=== PATIENT | male | born 1955 | race Hispanic/Latino ===

== ENCOUNTER 2020-09-22 11:08 | Inpatient (IN) | payer MEDICAID, OTHER, SELFPAY ==
[~2020-09-22] VITALS: Ht 162.6 cm; Wt 72.7 kg
[2020-09-22] MEDS ORDERED: NITROGLYCERIN 1GM/1 INCH PACKET TD ONE (11:29)
[2020-09-22 11:34] LABS: BASOPHILS % (AUTO) 0.5 % (0.0-5.0); EOSINOPHILS % (AUTO) 0.9 % (0.0-8.0); HEMATOCRIT 39.5 % (42-54); LYMPHOCYTES % (AUTO) 36.4 % (21.0-51.0); MEAN CORPUSCULAR HEMOGLOBIN 28.2 pg (27.0-33.0); MEAN CORPUSCULAR HGB CONC 33.4 g/dL (32.0-36.0); MEAN CORPUSCULAR VOLUME 84.4 fL (79-99); MONOCYTES % (AUTO) 11.2 % (3.0-13.0); NEUTROPHILS % (AUTO) 50.6 % (40.0-77.0); PLATELET COUNT (AUTO) 237 K/uL (130-400); RED BLOOD CELL COUNT(AUTO) 4.68 MIL/uL (4.50-6.20); RED CELL DISTRIBUTION WIDTH 13.3 % (11.0-15.5); WHITE BLOOD COUNT (AUTO) 7.4 K/uL (4.8-10.8)
[2020-09-22 11:43] LABS: CREATININE 0.8 mg/dL (0.5-1.5); POTASSIUM 3.9 mmol/L (3.5-5.1)
[2020-09-22 11:47] LABS: BILIRUBIN,TOTAL 0.4 mg/dL (0.2-1.0); TOTAL PROTEIN, SERUM 7.6 g/dL (6.0-8.3)
[2020-09-22 12:21] LABS: INR 0.99 (0.85-1.15); PROTHROMBIN TIME 10.6 SEC (9.6-11.6)
[2020-09-22 12:23] LABS: PARTIAL THROMBOPLASTIN TIME 27.9 SEC (26.3-35.5)
[2020-09-22] MEDS ORDERED: ASPIRIN 81MG TAB.CHEW PO SCH (13:30)
[2020-09-22] MEDS ORDERED: GLUCAGON 1MG KIT 1 MG ML IM PRN ×2 (13:30→17:15)
[2020-09-22] MEDS ORDERED: ENOXAPARIN SODIUM 40 MG/0.4 ML SYRINGE SQ SCH (13:30)
[2020-09-22] MEDS ORDERED: DEXTROSE 50%-WATER 50 ML DISP.SYRIN IV PRN ×2 (13:30→17:15)
[2020-09-22] MEDS ORDERED: METOPROLOL TARTRATE 25 MG TAB PO SCH (13:30)
[2020-09-22 15:31] LABS: APPEARANCE,URINE Clear (CLEAR); BILIRUBIN,URINE Negative (NEGATIVE); COLOR,URINE Yellow (YELLOW); GLUCOSE, URINE (UA) >=1000 mg/dL (NEGATIVE); KETONES,URINE Negative (NEGATIVE); LEUKOCYTE ESTERASE ,URINE Negative (NEGATIVE); NITRATE,URINE Negative (NEGATIVE); OCCULT BLOOD,URINE Negative (NEGATIVE); PH,URINE 6.5 (5.0-8.0); PROTEIN,URINE POS 1+ mg/dL (NEGATIVE); UROBILINOGEN,URINE 0.2 mg/dL (0.2-1.0)
[2020-09-22 15:43] LABS: BACTERIA,URINE Rare /HPF (None Seen); RBC,URINE 0-1 /HPF (0-1); SQUAMOUS EPITHELIAL CELL,UR Rare /HPF (0-2); WBC,URINE 0-1 /HPF (0-1)
[2020-09-22] MEDS ORDERED: INSULIN HUMULIN R 100 UNIT/ML 3ML SQ SCH (16:30)
[2020-09-22] MEDS ORDERED: FUROSEMIDE 40 MG TABLET PO SCH (17:00)
[2020-09-22] MEDS ORDERED: ACETAMINOPHEN 325 MG TAB PO PRN (17:15)
[2020-09-22] MEDS ORDERED: GUAIFENESIN-DM 200/20 MG 10 ML PO PRN (17:15)
[2020-09-22] MEDS ORDERED: DiphenhydrAMINE HCL 50 MG/ML VIAL IV PRN (17:15)
[2020-09-22] MEDS ORDERED: ONDANSETRON HCL 4 MG/2 ML VIAL IV PRN (17:15)
[2020-09-22] MEDS ORDERED: MAG HYDROX/AL HYDROX/SIMETH ES 30 ML SUSP UDCUP PO PRN (17:15)
[2020-09-22] MEDS ORDERED: POTASSIUM CHLORIDE 10% ELIXIR 20 MEQ/15 ML UDCUP PO PRN (17:15)
[2020-09-22] MEDS ORDERED: POTASSIUM CHLORIDE 20 MEQ ERTAB PO PRN (17:15)
[2020-09-22] MEDS ORDERED: NITROGLYCERIN 0.4 MG SL TAB SL PRN (17:15)
[2020-09-22] MEDS ORDERED: POTASSIUM CHLORIDE 20MEQ/100ML 100 ML IV PRN ×2 (17:15)
[2020-09-22] MEDS ORDERED: LACTULOSE 20 GM/30 ML UDCUP PO PRN (17:15)
[2020-09-22] MEDS ORDERED: DIPHENHYDRAMINE HCL 25 MG CAPSULE PO PRN (17:15)
[2020-09-22] MEDS: FAMOTIDINE 20MG TAB 20 MG TAB PO SCH (21:00)
[2020-09-22] MEDS: INSULIN HUMULIN R 100 UNIT/ML 3ML SQ SCH (21:00)
[2020-09-22] MEDS ORDERED: FERR325T22 PO (22:18)
[2020-09-22] MEDS ORDERED: ATOR40TA71 PO (22:18)
[2020-09-22] MEDS ORDERED: CLOP75TA32 PO (22:18)
[2020-09-22] MEDS ORDERED: LISI-617 PO (22:18)
[2020-09-22] MEDS ORDERED: FURO80TA87 PO (22:18)
[2020-09-22] MEDS ORDERED: SPIR100T5 PO (22:18)
[2020-09-22] MEDS ORDERED: AEC81 PO (22:18)
[2020-09-22 22:39] VITALS: BP 141/80
[2020-09-23 00:27] VITALS: BP 143/103
[2020-09-23 04:19] VITALS: BP 145/50
[2020-09-23] MEDS: INSULIN HUMULIN R 100 UNIT/ML 3ML SQ SCH ×4 (04:56→20:49)
[2020-09-23 08:00] VITALS: BP 131/53
[2020-09-23] MEDS ORDERED: FUROSEMIDE 10 MG/ML 4ML VIAL IV SCH (08:00)
[2020-09-23] MEDS ORDERED: SPIRONOLACTONE 25 MG TAB PO SCH (09:00)
[2020-09-23] MEDS: ASPIRIN 81MG TAB.CHEW PO SCH (09:41)
[2020-09-23] MEDS: FAMOTIDINE 20MG TAB 20 MG TAB PO SCH ×2 (09:41→19:54)
[2020-09-23] MEDS: ATORVASTATIN CALCIUM 40 MG TABLET PO SCH (09:41)
[2020-09-23] MEDS: LISINOPRIL 5 MG TABLET PO SCH (09:42)
[2020-09-23] MEDS: METOPROLOL SUCCINATE 50 MG TAB.SR.24H PO SCH (09:42)
[2020-09-23] MEDS: ENOXAPARIN SODIUM 40 MG/0.4 ML SYRINGE SQ SCH (09:43)
[2020-09-23] MEDS ORDERED: REGADENOSON 0.4 MG/5 ML PF SYG IVP SCH (11:00)
[2020-09-23 16:44] VITALS: BP 155/63
[2020-09-23 19:40] VITALS: BP 113/48
[2020-09-23 23:29] VITALS: BP 138/60
[2020-09-24 03:35] VITALS: BP 124/68
[2020-09-24] MEDS: INSULIN HUMULIN R 100 UNIT/ML 3ML SQ SCH ×4 (05:08→21:00)
[2020-09-24 06:05] LABS: BASOPHILS % (AUTO) 0.6 % (0.0-5.0); EOSINOPHILS % (AUTO) 0.9 % (0.0-8.0); HEMATOCRIT 36.4 % (42-54); LYMPHOCYTES % (AUTO) 28.1 % (21.0-51.0); MEAN CORPUSCULAR HEMOGLOBIN 28.7 pg (27.0-33.0); MEAN CORPUSCULAR HGB CONC 33.8 g/dL (32.0-36.0); MEAN CORPUSCULAR VOLUME 84.8 fL (79-99); MONOCYTES % (AUTO) 15.3 % (3.0-13.0); NEUTROPHILS % (AUTO) 54.7 % (40.0-77.0); PLATELET COUNT (AUTO) 218 K/uL (130-400); RED BLOOD CELL COUNT(AUTO) 4.29 MIL/uL (4.50-6.20); RED CELL DISTRIBUTION WIDTH 13.7 % (11.0-15.5)
[2020-09-24 06:29] LABS: MAGNESIUM 1.8 mg/dL (1.80-2.40); POTASSIUM 5.1 mmol/L (3.5-5.1)
[2020-09-24 06:37] LABS: B-TYPE NATRIURETIC PEPTIDE 290 pg/mL (0-100)
[2020-09-24 08:05] VITALS: BP 100/59
[2020-09-24] MEDS ORDERED: SODIUM POLYSTYRENE SULFONATE 15 GM/60 ML ML PO SCH (08:15)
[2020-09-24] MEDS ORDERED: ASPIRIN 81 MG EC TAB PO SCH (09:00)
[2020-09-24] MEDS ORDERED: FUROSEMIDE 10 MG/ML 2ML VIAL IV SCH (09:00)
[2020-09-24] MEDS ORDERED: ATORVASTATIN CALCIUM 40 MG TABLET PO SCH (09:00)
[2020-09-24] MEDS ORDERED: LISINOPRIL 5 MG TABLET PO SCH (09:00)
[2020-09-24] MEDS: FERROUS SULFATE 325 MG TABLET.DR PO SCH (09:40)
[2020-09-24] MEDS: ATORVASTATIN CALCIUM 40 MG TABLET PO SCH (09:41)
[2020-09-24] MEDS: METOPROLOL SUCCINATE 50 MG TAB.SR.24H PO SCH (09:41)
[2020-09-24] MEDS: CLOPIDOGREL BISULFATE 75 MG TAB PO SCH (09:41)
[2020-09-24] MEDS: FAMOTIDINE 20MG TAB 20 MG TAB PO SCH ×2 (09:41→21:18)
[2020-09-24] MEDS: LISINOPRIL 5 MG TABLET PO SCH (09:41)
[2020-09-24] MEDS: ASPIRIN 81MG TAB.CHEW PO SCH (09:42)
[2020-09-24] MEDS: ENOXAPARIN SODIUM 40 MG/0.4 ML SYRINGE SQ SCH (09:43)
[2020-09-24 11:43] VITALS: BP 143/79
[2020-09-24] MEDS ORDERED: SPIRONOLACTONE 100 MG PO SCH (12:00)
[2020-09-24 16:00] VITALS: BP 118/56
[2020-09-24 18:50] VITALS: BP 128/53
[2020-09-25] VITALS (16 sets, daily range): BP systolic 112–164; BP diastolic 41–120
[2020-09-25] MEDS: INSULIN HUMULIN R 100 UNIT/ML 3ML SQ SCH ×4 (05:34→20:59)
[2020-09-25 05:54] LABS: CREATININE 0.9 mg/dL (0.5-1.5); POTASSIUM 4.1 mmol/L (3.5-5.1)
[2020-09-25] MEDS: CLOPIDOGREL BISULFATE 75 MG TAB PO SCH (08:31)
[2020-09-25] MEDS: ENOXAPARIN SODIUM 40 MG/0.4 ML SYRINGE SQ SCH (08:31)
[2020-09-25] MEDS: LISINOPRIL 5 MG TABLET PO SCH (08:31)
[2020-09-25] MEDS: METOPROLOL SUCCINATE 50 MG TAB.SR.24H PO SCH (08:31)
[2020-09-25] MEDS: ATORVASTATIN CALCIUM 40 MG TABLET PO SCH ×2 (08:31→20:51)
[2020-09-25] MEDS: FAMOTIDINE 20MG TAB 20 MG TAB PO SCH ×2 (08:31→20:50)
[2020-09-25] MEDS: ASPIRIN 81MG TAB.CHEW PO SCH (08:31)
[2020-09-25] MEDS: FERROUS SULFATE 325 MG TABLET.DR PO SCH (08:31)
[2020-09-25] MEDS ORDERED: NITROGLYCERIN 2 MG/VIAL VIAL IV ONE (16:20)
[2020-09-25] MEDS ORDERED: MIDAZOLAM HCL 1 MG/ML 2ML VIAL ONE (16:20)
[2020-09-25] MEDS ORDERED: IOHEXOL 350 MG/ML 100ML INFUS..BTL IV ONE (16:20)
[2020-09-25] MEDS ORDERED: SODIUM BICARB 50MEQ 50ML VIAL 50 ML ONE (16:20)
[2020-09-25] MEDS ORDERED: BIVALIRUDIN 250 MG/VIAL IV ONE (16:20)
[2020-09-25] MEDS ORDERED: FENTANYL CITRATE PF 50 MCG/1 ML 2ML VIAL ONE (16:20)
[2020-09-25] MEDS ORDERED: LIDOCAINE HCL 2% 20ML ONE (16:21)
[2020-09-25] MEDS ORDERED: HEPARIN SODIUM 1000UNIT/ML 10ML VIAL ONE (16:55)
[2020-09-25] MEDS ORDERED: LABETALOL HCL 5 MG/ML 20ML VIAL IV ONE (17:40)
[2020-09-25] MEDS ORDERED: NITROGLYCERIN 50 MG/D5% WATER 1 BOT ONE (17:40)
[2020-09-25] MEDS ORDERED: PHARMACY COMMUNICATION MISC SCH (18:30)
[2020-09-25 19:07] LABS: CREATININE 0.8 mg/dL (0.5-1.5); INR 1.04 (0.85-1.15); POTASSIUM 4.2 mmol/L (3.5-5.1); PROTHROMBIN TIME 11.1 SEC (9.6-11.6)
[2020-09-25 19:08] LABS: PARTIAL THROMBOPLASTIN TIME 69.8 SEC (26.3-35.5)
[2020-09-25 19:16] LABS: ALBUMIN 3.4 g/dL (3.5-5.0); BILIRUBIN,TOTAL 0.7 mg/dL (0.2-1.0); MAGNESIUM 2.5 mg/dL (1.80-2.40); TOTAL PROTEIN, SERUM 6.9 g/dL (6.0-8.3); TROPONIN I 0.1 ng/mL (0.00-0.06)
[2020-09-25] MEDS: DEXTROSE 5% SQ SCH (19:53)
[2020-09-25] MEDS: WATER SQ SCH (19:53)
[2020-09-25] MEDS: HEPARIN SODIUM SQ SCH (19:53)
[2020-09-25] MEDS: METOPROLOL TARTRATE 25 MG TAB PO SCH (20:51)
[2020-09-25] MEDS ORDERED: NITROGLYCERIN 50 MG/D5% WATER 1 BOT IV PRN (21:30)
[2020-09-25] MEDS ORDERED: CALCIUM GLUCONATE 1 GM in SODIUM CHLORIDE 0.9% 100 ML IV SCH (21:30)
[2020-09-25] MEDS ORDERED: SODIUM CHLORIDE 0.9% 1000ML 1,000 ML IV ONE (21:45)
[2020-09-25] MEDS: ACETAMINOPHEN 325 MG TAB PO PRN (21:52)
[2020-09-25] MEDS ORDERED: LABETALOL 20 MG/4 ML DISP.SYRIN IV ONE (22:30)
[2020-09-26] VITALS (26 sets, daily range): BP systolic 101–228; BP diastolic 35–95
[2020-09-26 03:29] LABS: HEMATOCRIT 32.4 % (42-54); MEAN CORPUSCULAR HEMOGLOBIN 28.3 pg (27.0-33.0); MEAN CORPUSCULAR HGB CONC 33.6 g/dL (32.0-36.0); MEAN CORPUSCULAR VOLUME 84.2 fL (79-99); RED BLOOD CELL COUNT(AUTO) 3.85 MIL/uL (4.50-6.20); RED CELL DISTRIBUTION WIDTH 13.4 % (11.0-15.5); WHITE BLOOD COUNT (AUTO) 7.6 K/uL (4.8-10.8)
[2020-09-26 03:42] LABS: INR 1.03 (0.85-1.15)
[2020-09-26 03:43] LABS: PARTIAL THROMBOPLASTIN TIME 29.3 SEC (26.3-35.5)
[2020-09-26 03:47] LABS: ALBUMIN 3.2 g/dL (3.5-5.0); BILIRUBIN,TOTAL 0.8 mg/dL (0.2-1.0); CREATININE 0.8 mg/dL (0.5-1.5); POTASSIUM 4.5 mmol/L (3.5-5.1); TOTAL PROTEIN, SERUM 6.3 g/dL (6.0-8.3)
[2020-09-26] MEDS: INSULIN HUMULIN R 100 UNIT/ML 3ML SQ SCH ×2 (05:49→11:00)
[2020-09-26] MEDS ORDERED: SODIUM CHLORIDE 0.9% 1000ML 1,000 ML IV ONE (07:50)
[2020-09-26] MEDS: METOPROLOL TARTRATE 25 MG TAB PO SCH (08:00)
[2020-09-26] MEDS: ACETAMINOPHEN 325 MG TAB PO PRN (08:01)
[2020-09-26] MEDS: ASPIRIN 81MG TAB.CHEW PO SCH (08:04)
[2020-09-26] MEDS: FAMOTIDINE 20MG TAB 20 MG TAB PO SCH (08:11)
[2020-09-26] MEDS: FERROUS SULFATE 325 MG TABLET.DR PO SCH (08:11)
[2020-09-26 08:47] LABS: MAGNESIUM 1.7 mg/dL (1.80-2.40); PHOSPHORUS 3.5 mg/dL (2.5-4.9)
[2020-09-26] MEDS ORDERED: MAGNESIUM 2GM PREMIX 50ML 50 ML IV SCH (09:00)
[2020-09-26] MEDS ORDERED: CEFAZOLIN SODIUM 1 GM VIAL ONE (09:59)
[2020-09-26] MEDS ORDERED: PAPAVERINE HCL 30 MG/ML 2ML VIAL ONE (09:59)
[2020-09-26] MEDS ORDERED: EPINEPHRINE 10 MG in SODIUM CHLORIDE 0.9% 240 ML IV PRN (10:00)
[2020-09-26] MEDS ORDERED: NOREPINEPHRINE BITARTRATE 8 MG in DEXTROSE 5%-WATER 250 ML IV PRN ×2 (10:00→18:45)
[2020-09-26] MEDS ORDERED: AMINOCAPROIC ACID 15,000 MG in SODIUM CHLORIDE 0.9% 500ML 420 ML IV PRN (10:00)
[2020-09-26] MEDS ORDERED: NITROGLYCERIN 50 MG/D5% WATER 1 BOT ONE (10:45)
[2020-09-26] MEDS: DEXTROSE 5%-WATER 1,000 ML IV PRN ×2 (11:30→12:15)
[2020-09-26] MEDS ORDERED: CEFAZOLIN SODIUM 1 GM VIAL IVP PRN (12:00)
[2020-09-26] MEDS ORDERED: EPINEPHRINE 1 MG/ML AMPULE ONE (13:22)
[2020-09-26] MEDS ORDERED: SODIUM BICARB 50MEQ 50ML VIAL 150 ML ONE (13:22)
[2020-09-26] MEDS ORDERED: PROPOFOL 10 MG/ML 20ML VIAL IV ONE (13:22)
[2020-09-26] MEDS ORDERED: LIDOCAINE PF 2% 5ML ABBOJECT ONE (13:22)
[2020-09-26] MEDS ORDERED: ESMOLOL HCL 10 MG/ML 10 ML VIAL ONE (13:22)
[2020-09-26] MEDS ORDERED: HEPARIN SODIUM 1000UNIT/ML 10ML VIAL ONE (13:22)
[2020-09-26] MEDS ORDERED: AMINOCAPROIC ACID 250 MG/ML 20 ML VIAL ONE (13:22)
[2020-09-26] MEDS ORDERED: NOREPINEPHRINE BITARTRATE 1 MG/1 ML ML IV ONE (13:22)
[2020-09-26] MEDS ORDERED: PROTAMINE SULFATE 10 MG/ML 25ML VIAL IV ONE (13:22)
[2020-09-26] MEDS ORDERED: ROCURONIUM 10MG/1ML SYR 10 MG/ML ML ONE (13:23)
[2020-09-26] MEDS ORDERED: FENTANYL CITRATE PF 50 MCG/1 ML 20ML VIAL IJ ONE (13:23)
[2020-09-26] MEDS ORDERED: MIDAZOLAM HCL 1 MG/ML 2ML VIAL ONE (13:23)
[2020-09-26] MEDS ORDERED: KETAMINE 50MG/ML SYRINGE 50 MG/ML DISP.SYRIN IV ONE (13:25)
[2020-09-26] MEDS ORDERED: EPHEDRINE SULFATE 50 MG/ML AMPULE ONE (15:42)
[2020-09-26 16:48] LABS: ABG BASE EXCESS -3.6 mmol/L (-2.0-3.0); ABG HCO3 19.2 mmol/L (21.0-28.0); ABG OXYGEN SATURATION 99.1 % (95.0-99.0); ABG PCO2 28 mmHg (35-48)
[2020-09-26] MEDS ORDERED: MORPHINE SULFATE 2 MG/ML 1ML SYG IV PRN ×2 (17:15→18:45)
[2020-09-26] MEDS ORDERED: NITROGLYCERIN 50 MG/D5% WATER 250 BOT IV SCH (17:15)
[2020-09-26] MEDS ORDERED: AMINOCAPROIC ACID 15,000 MG in SODIUM CHLORIDE 0.9% 250 ML IV SCH (17:15)
[2020-09-26] MEDS ORDERED: ACETAMINOPHEN 650 MG SUPPOSITORY RC PRN (17:15)
[2020-09-26] MEDS ORDERED: PROPOFOL 1000 MG/100 ML 100 ML IV PRN (17:15)
[2020-09-26] MEDS ORDERED: EPINEPHRINE 10 MG in DEXTROSE 5%-WATER 250 ML IV PRN (17:15)
[2020-09-26] MEDS ORDERED: NOREPINEPHRINE 4MG/NS 250ML 250 ML IV PRN (17:15)
[2020-09-26] MEDS ORDERED: SODIUM CHLORIDE 0.9% 1000ML 1,000 ML IV SCH (17:15)
[2020-09-26] MEDS ORDERED: INSULIN REGULAR, HUMAN 3ML 100 UNIT in SODIUM CHLORIDE 0.9% 99 ML IV SCH ×2 (17:15)
[2020-09-26] MEDS ORDERED: GLUCAGON 1MG KIT 1 MG ML IM PRN (17:15)
[2020-09-26] MEDS ORDERED: SODIUM CHLORIDE 0.9% 10 ML VIAL IVP PRN (17:15)
[2020-09-26] MEDS ORDERED: ONDANSETRON HCL 4 MG/2 ML VIAL IV PRN (17:15)
[2020-09-26] MEDS ORDERED: DEXTROSE 50%-WATER 50 ML DISP.SYRIN IV PRN (17:15)
[2020-09-26] MEDS ORDERED: POTASSIUM PHOS 15 mMOL+NS250ML 250 ML IV PRN (17:15)
[2020-09-26] MEDS ORDERED: ALBUMIN (HUMAN) 5% 250 ML IV PRN (17:15)
[2020-09-26] MEDS ORDERED: ACETAMINOPHEN 325 MG TAB PO PRN (17:15)
[2020-09-26 18:21] LABS: ABG BASE EXCESS -4.8 mmol/L (-2.0-3.0); ABG HCO3 19.3 mmol/L (21.0-28.0); ABG PCO2 32 mmHg (35-48)
[2020-09-26 18:56] LABS: ABG BASE EXCESS -1.2 mmol/L (-2.0-3.0); ABG HCO3 22.2 mmol/L (21.0-28.0); ABG PCO2 32 mmHg (35-48)
[2020-09-26 20:02] LABS: HEMATOCRIT 24.4 % (42-54); MEAN CORPUSCULAR HEMOGLOBIN 29.4 pg (27.0-33.0); MEAN CORPUSCULAR HGB CONC 34.8 g/dL (32.0-36.0); MEAN CORPUSCULAR VOLUME 84.4 fL (79-99); RED BLOOD CELL COUNT(AUTO) 2.89 MIL/uL (4.50-6.20); RED CELL DISTRIBUTION WIDTH 13.2 % (11.0-15.5); WHITE BLOOD COUNT (AUTO) 22.6 K/uL (4.8-10.8)
[2020-09-26 20:05] LABS: ABG BASE EXCESS -3.1 mmol/L (-2.0-3.0); ABG HCO3 19.4 mmol/L (21.0-28.0); ABG OXYGEN SATURATION 98.8 % (95.0-99.0); ABG PCO2 27 mmHg (35-48)
[2020-09-26 20:08] LABS: ABG OXYGEN SATURATION 65.5 % (95.0-99.0); BASE EXCESS,VENOUS BLOOD GAS -2.5 (-2.0-3.0); HCO3,VENOUS BLOOD GAS 21.2 (21.0-28.0); PCO2,VENOUS BLOOD GAS 34 (35-48); PH,VENOUS BLOOD GAS 7.414 (7.350-7.450)
[2020-09-26 20:14] LABS: INR 1.4 (0.85-1.15); MAGNESIUM 1.3 mg/dL (1.80-2.40); PHOSPHORUS 5.2 mg/dL (2.5-4.9); PROTHROMBIN TIME 14.7 SEC (9.6-11.6)
[2020-09-26 20:15] LABS: PARTIAL THROMBOPLASTIN TIME 23.4 SEC (26.3-35.5)
[2020-09-26] MEDS: POTASSIUM CHLORIDE 20MEQ/100ML 100 ML IV PRN ×2 (20:49→23:40)
[2020-09-26] MEDS: SODIUM BICARB 50MEQ 50ML VIAL IV PRN ×3 (20:50→21:52)
[2020-09-26] MEDS: ATORVASTATIN CALCIUM 40 MG TABLET PO SCH (21:00)
[2020-09-26] MEDS ORDERED: PROPOFOL 1000 MG/100 ML IV PRN (21:15)
[2020-09-26] MEDS ORDERED: PROPOFOL 1000 MG/100 ML 100 ML IV SCH (21:30)
[2020-09-26] MEDS: FAMOTIDINE/PF 20 MG/2 ML VIAL IV SCH (21:30)
[2020-09-26 21:32] LABS: ABG HCO3 21.1 mmol/L (21.0-28.0); ABG OXYGEN SATURATION 98.7 % (95.0-99.0); ABG PCO2 27 mmHg (35-48)
[2020-09-26] MEDS: SODIUM CHLORIDE 0.9% 500ML 500 ML IV SCH (21:43)
[2020-09-26] MEDS: CEFAZOLIN SODIUM 1 GM VIAL IV SCH (21:53)
[2020-09-26] MEDS: CALCIUM GLUCONATE 1 GM in SODIUM CHLORIDE 0.9% 50 ML IV PRN (21:57)
[2020-09-26 22:35] LABS: ABG BASE EXCESS -0.3 mmol/L (-2.0-3.0); ABG HCO3 20.9 mmol/L (21.0-28.0); ABG OXYGEN SATURATION 98.4 % (95.0-99.0); ABG PCO2 24 mmHg (35-48)
[2020-09-26 23:35] LABS: ABG BASE EXCESS -1.9 mmol/L (-2.0-3.0); ABG HCO3 20.3 mmol/L (21.0-28.0); ABG PCO2 27 mmHg (35-48)
[2020-09-27] VITALS (27 sets, daily range): BP systolic 116–255; BP diastolic 23–132
[2020-09-27 00:04] LABS: HEMATOCRIT 27.7 % (42-54); MEAN CORPUSCULAR HEMOGLOBIN 28.6 pg (27.0-33.0); MEAN CORPUSCULAR HGB CONC 33.9 g/dL (32.0-36.0); MEAN CORPUSCULAR VOLUME 84.2 fL (79-99); RED BLOOD CELL COUNT(AUTO) 3.29 MIL/uL (4.50-6.20); RED CELL DISTRIBUTION WIDTH 13.6 % (11.0-15.5); WHITE BLOOD COUNT (AUTO) 14.9 K/uL (4.8-10.8)
[2020-09-27 00:12] LABS: CREATININE 1.3 mg/dL (0.5-1.5); POTASSIUM 3.2 mmol/L (3.5-5.1)
[2020-09-27 00:15] LABS: MAGNESIUM 1.3 mg/dL (1.80-2.40); PHOSPHORUS 2.4 mg/dL (2.5-4.9)
[2020-09-27 00:23] LABS: INR 1.3 (0.85-1.15); PROTHROMBIN TIME 13.7 SEC (9.6-11.6)
[2020-09-27 00:24] LABS: PARTIAL THROMBOPLASTIN TIME 27.5 SEC (26.3-35.5)
[2020-09-27 00:29] LABS: ABG BASE EXCESS -1.8 mmol/L (-2.0-3.0); ABG PCO2 25 mmHg (35-48)
[2020-09-27] MEDS: MAGNESIUM 2GM PREMIX 50ML 50 ML IV PRN ×2 (00:43→02:05)
[2020-09-27] MEDS: SODIUM BICARB 50MEQ 50ML VIAL IV PRN ×2 (00:44→00:48)
[2020-09-27] MEDS: POTASSIUM CHLORIDE 20MEQ/100ML 100 ML IV PRN ×5 (00:44→19:42)
[2020-09-27 01:35] LABS: ABG BASE EXCESS 1.9 mmol/L (-2.0-3.0); ABG HCO3 23.1 mmol/L (21.0-28.0); ABG OXYGEN SATURATION 97.8 % (95.0-99.0); ABG PCO2 26 mmHg (35-48)
[2020-09-27] MEDS: CALCIUM GLUCONATE 1 GM in SODIUM CHLORIDE 0.9% 50 ML IV PRN ×4 (02:01→19:43)
[2020-09-27 02:37] LABS: ABG BASE EXCESS 3.1 mmol/L (-2.0-3.0); ABG HCO3 24.6 mmol/L (21.0-28.0); ABG OXYGEN SATURATION 97.6 % (95.0-99.0); ABG PCO2 27 mmHg (35-48)
[2020-09-27 03:43] LABS: ABG BASE EXCESS 5.4 mmol/L (-2.0-3.0); ABG HCO3 26.2 mmol/L (21.0-28.0); ABG PCO2 26 mmHg (35-48)
[2020-09-27 05:10] LABS: HEMATOCRIT 26.4 % (42-54); MEAN CORPUSCULAR HEMOGLOBIN 28.8 pg (27.0-33.0); MEAN CORPUSCULAR HGB CONC 34.8 g/dL (32.0-36.0); MEAN CORPUSCULAR VOLUME 82.5 fL (79-99); NUCLEATED RED BLOOD CELLS 0.2 % (0.0-0.19); RED BLOOD CELL COUNT(AUTO) 3.2 MIL/uL (4.50-6.20); RED CELL DISTRIBUTION WIDTH 13.6 % (11.0-15.5); WHITE BLOOD COUNT (AUTO) 12.2 K/uL (4.8-10.8)
[2020-09-27 05:21] LABS: ABG BASE EXCESS 5.9 mmol/L (-2.0-3.0); ABG HCO3 26.5 mmol/L (21.0-28.0); ABG OXYGEN SATURATION 97.6 % (95.0-99.0); ABG PCO2 26 mmHg (35-48)
[2020-09-27 05:23] LABS: INR 1.18 (0.85-1.15); PROTHROMBIN TIME 12.5 SEC (9.6-11.6)
[2020-09-27 05:25] LABS: PARTIAL THROMBOPLASTIN TIME 34.5 SEC (26.3-35.5)
[2020-09-27] MEDS: CEFAZOLIN SODIUM 1 GM VIAL IV SCH ×2 (05:41→13:50)
[2020-09-27 05:49] LABS: ALBUMIN 2.4 g/dL (3.5-5.0); CREATININE 1.2 mg/dL (0.5-1.5); MAGNESIUM 2.7 mg/dL (1.80-2.40); PHOSPHORUS 0.7 mg/dL (2.5-4.9); POTASSIUM 3.5 mmol/L (3.5-5.1)
[2020-09-27 06:12] LABS: BILIRUBIN,TOTAL 0.6 mg/dL (0.2-1.0); TOTAL PROTEIN, SERUM 4.6 g/dL (6.0-8.3)
[2020-09-27] MEDS: FAMOTIDINE/PF 20 MG/2 ML VIAL IV SCH ×2 (07:47→21:14)
[2020-09-27 08:07] LABS: ABG BASE EXCESS 3.9 mmol/L (-2.0-3.0); ABG HCO3 25.4 mmol/L (21.0-28.0); ABG OXYGEN SATURATION 97.1 % (95.0-99.0); ABG PCO2 28 mmHg (35-48)
[2020-09-27] MEDS ORDERED: RACEPINEPHRINE HCL 2.25% 0.5 ML NEB SOLN ONE (09:23)
[2020-09-27 10:53] LABS: ABG HCO3 29.3 mmol/L (21.0-28.0); ABG OXYGEN SATURATION 97.7 % (95.0-99.0); ABG PCO2 42 mmHg (35-48)
[2020-09-27] MEDS: ASPIRIN 81 MG EC TAB PO SCH (11:36)
[2020-09-27] MEDS: TRAMADOL HCL 50 MG TABLET PO PRN ×3 (11:36→22:50)
[2020-09-27] MEDS: DEXTROSE 5% SQ SCH (16:06)
[2020-09-27] MEDS: WATER SQ SCH (16:06)
[2020-09-27] MEDS: HEPARIN SODIUM SQ SCH (16:06)
[2020-09-27 19:35] LABS: ABG BASE EXCESS 3.4 mmol/L (-2.0-3.0); ABG HCO3 28.1 mmol/L (21.0-28.0); ABG OXYGEN SATURATION 98.1 % (95.0-99.0); ABG PCO2 43 mmHg (35-48)
[2020-09-27] MEDS: ATORVASTATIN CALCIUM 40 MG TABLET PO SCH (21:13)
[2020-09-27 21:36] LABS: HEMATOCRIT 21.8 % (42-54); MEAN CORPUSCULAR HGB CONC 33.5 g/dL (32.0-36.0); MEAN CORPUSCULAR VOLUME 86.5 fL (79-99); NUCLEATED RED BLOOD CELLS 0.3 % (0.0-0.19); RED BLOOD CELL COUNT(AUTO) 2.52 MIL/uL (4.50-6.20); RED CELL DISTRIBUTION WIDTH 14.7 % (11.0-15.5); WHITE BLOOD COUNT (AUTO) 16.1 K/uL (4.8-10.8)
[2020-09-27 22:00] LABS: ALBUMIN 2.5 g/dL (3.5-5.0); BILIRUBIN,TOTAL 0.5 mg/dL (0.2-1.0); CREATININE 0.9 mg/dL (0.5-1.5); POTASSIUM 4.8 mmol/L (3.5-5.1); TOTAL PROTEIN, SERUM 4.9 g/dL (6.0-8.3)
[2020-09-27 22:50] LABS: HEMATOCRIT 21.9 % (42-54); MEAN CORPUSCULAR HEMOGLOBIN 29.2 pg (27.0-33.0); MEAN CORPUSCULAR HGB CONC 33.3 g/dL (32.0-36.0); MEAN CORPUSCULAR VOLUME 87.6 fL (79-99); NUCLEATED RED BLOOD CELLS 0.2 % (0.0-0.19); RED BLOOD CELL COUNT(AUTO) 2.5 MIL/uL (4.50-6.20); WHITE BLOOD COUNT (AUTO) 17.5 K/uL (4.8-10.8)
[2020-09-27 23:05] LABS: INR 1.14 (0.85-1.15); PROTHROMBIN TIME 12.1 SEC (9.6-11.6)
[2020-09-27 23:06] LABS: PARTIAL THROMBOPLASTIN TIME 38.8 SEC (26.3-35.5)
[2020-09-28] VITALS (40 sets, daily range): BP systolic 114–199; BP diastolic 41–105
[2020-09-28] MEDS ORDERED: DEXTROSE 5%-WATER 1,000 ML IV ONE (02:25)
[2020-09-28 06:26] LABS: HEMATOCRIT 24.7 % (42-54); MEAN CORPUSCULAR HGB CONC 32.8 g/dL (32.0-36.0); MEAN CORPUSCULAR VOLUME 85.5 fL (79-99); NUCLEATED RED BLOOD CELLS 0.8 % (0.0-0.19); RED BLOOD CELL COUNT(AUTO) 2.89 MIL/uL (4.50-6.20); RED CELL DISTRIBUTION WIDTH 16.8 % (11.0-15.5); WHITE BLOOD COUNT (AUTO) 17.1 K/uL (4.8-10.8)
[2020-09-28 06:38] LABS: INR 1.07 (0.85-1.15); PROTHROMBIN TIME 11.4 SEC (9.6-11.6)
[2020-09-28 06:40] LABS: PARTIAL THROMBOPLASTIN TIME 29.6 SEC (26.3-35.5)
[2020-09-28 06:53] LABS: ALBUMIN 2.8 g/dL (3.5-5.0); BILIRUBIN,TOTAL 0.9 mg/dL (0.2-1.0); CREATININE 0.8 mg/dL (0.5-1.5); MAGNESIUM 2.1 mg/dL (1.80-2.40); POTASSIUM 4.2 mmol/L (3.5-5.1); TOTAL PROTEIN, SERUM 5.7 g/dL (6.0-8.3)
[2020-09-28 06:53] LABS: ABG BASE EXCESS 3.5 mmol/L (-2.0-3.0); ABG HCO3 28.4 mmol/L (21.0-28.0); ABG OXYGEN SATURATION 94.9 % (95.0-99.0); ABG PCO2 45 mmHg (35-48)
[2020-09-28] MEDS: CALCIUM GLUCONATE 1 GM in SODIUM CHLORIDE 0.9% 50 ML IV PRN (07:35)
[2020-09-28] MEDS ORDERED: CEFAZOLIN SODIUM 1 GM VIAL IVP PRN (08:30)
[2020-09-28] MEDS ORDERED: PROPOFOL 10 MG/ML 20ML VIAL IV ONE (08:35)
[2020-09-28] MEDS ORDERED: LIDOCAINE PF 2% 5ML ABBOJECT ONE (08:35)
[2020-09-28] MEDS ORDERED: DEXAMETHASONE SOD PHOSPHATE 10MG/ML 1ML VIAL ONE (08:35)
[2020-09-28] MEDS ORDERED: ONDANSETRON HCL 4 MG/2 ML VIAL ONE (08:35)
[2020-09-28] MEDS ORDERED: MIDAZOLAM HCL 1 MG/ML 2ML VIAL ONE (08:36)
[2020-09-28] MEDS ORDERED: FENTANYL CITRATE PF 50 MCG/1 ML 2ML VIAL ONE (08:36)
[2020-09-28] MEDS ORDERED: CEFAZOLIN SODIUM 1 GM VIAL ONE ×2 (08:45→08:46)
[2020-09-28 10:20] LABS: ABG HCO3 21.7 mmol/L (21.0-28.0); ABG OXYGEN SATURATION 98.6 % (95.0-99.0); ABG PCO2 37 mmHg (35-48)
[2020-09-28 10:26] LABS: MAGNESIUM 1.7 mg/dL (1.80-2.40); POTASSIUM 4.6 mmol/L (3.5-5.1)
[2020-09-28] MEDS: ASPIRIN 81 MG EC TAB PO SCH (10:53)
[2020-09-28] MEDS: FAMOTIDINE/PF 20 MG/2 ML VIAL IV SCH ×2 (10:53→21:09)
[2020-09-28] MEDS: TRAMADOL HCL 50 MG TABLET PO PRN ×2 (12:45→21:10)
[2020-09-28] MEDS: CARVEDILOL 3.125 MG TABLET PO SCH ×2 (13:27→21:09)
[2020-09-28] MEDS ORDERED: CARVEDILOL 3.125 MG TABLET PO SCH (17:30)
[2020-09-28] MEDS: SODIUM CHLORIDE 0.9% 500ML 500 ML IV SCH (18:23)
[2020-09-28 20:48] LABS: HEMATOCRIT 24.9 % (42-54); MEAN CORPUSCULAR HEMOGLOBIN 27.9 pg (27.0-33.0); MEAN CORPUSCULAR HGB CONC 32.1 g/dL (32.0-36.0); MEAN CORPUSCULAR VOLUME 86.8 fL (79-99); NUCLEATED RED BLOOD CELLS 0.9 % (0.0-0.19); PLATELET COUNT (AUTO) 108 K/uL (130-400); RED BLOOD CELL COUNT(AUTO) 2.87 MIL/uL (4.50-6.20); RED CELL DISTRIBUTION WIDTH 17.2 % (11.0-15.5); WHITE BLOOD COUNT (AUTO) 14.7 K/uL (4.8-10.8)
[2020-09-28] MEDS ORDERED: CARVEDILOL 6.25 MG TABLET PO SCH (21:00)
[2020-09-28 21:07] LABS: ALBUMIN 2.5 g/dL (3.5-5.0); BILIRUBIN,TOTAL 0.7 mg/dL (0.2-1.0); CREATININE 0.9 mg/dL (0.5-1.5); TOTAL PROTEIN, SERUM 5.5 g/dL (6.0-8.3)
[2020-09-28] MEDS: ATORVASTATIN CALCIUM 40 MG TABLET PO SCH (21:09)
[2020-09-28 21:35] LABS: PLATELET MORPHOLOGY LARGE PLTS PRESENT
[2020-09-28 22:17] LABS: ABG BASE EXCESS 1.3 mmol/L (-2.0-3.0); ABG HCO3 25.8 mmol/L (21.0-28.0); ABG PCO2 41 mmHg (35-48)
[2020-09-29] VITALS (40 sets, daily range): BP systolic 41–177; BP diastolic 2–141
[2020-09-29 03:40] LABS: BASOPHILS % (AUTO) 0.1 % (0.0-5.0); HEMATOCRIT 25.4 % (42-54); LYMPHOCYTES % (AUTO) 5.6 % (21.0-51.0); MEAN CORPUSCULAR HEMOGLOBIN 27.9 pg (27.0-33.0); MEAN CORPUSCULAR HGB CONC 32.3 g/dL (32.0-36.0); MEAN CORPUSCULAR VOLUME 86.4 fL (79-99); MONOCYTES % (AUTO) 8.8 % (3.0-13.0); NEUTROPHILS % (AUTO) 84.4 % (40.0-77.0); PLATELET COUNT (AUTO) 118 K/uL (130-400); RED BLOOD CELL COUNT(AUTO) 2.94 MIL/uL (4.50-6.20); RED CELL DISTRIBUTION WIDTH 16.8 % (11.0-15.5); WHITE BLOOD COUNT (AUTO) 15.4 K/uL (4.8-10.8)
[2020-09-29 04:00] LABS: ALBUMIN 2.5 g/dL (3.5-5.0); BILIRUBIN,TOTAL 0.6 mg/dL (0.2-1.0); CREATININE 0.3 mg/dL (0.5-1.5); MAGNESIUM 1.9 mg/dL (1.80-2.40); PHOSPHORUS 2.6 mg/dL (2.5-4.9); POTASSIUM 4.7 mmol/L (3.5-5.1); TOTAL PROTEIN, SERUM 5.7 g/dL (6.0-8.3)
[2020-09-29 04:46] LABS: INR 1.18 (0.85-1.15); PROTHROMBIN TIME 12.4 SEC (9.6-11.6)
[2020-09-29] MEDS: INSULIN HUMULIN R 100 UNIT/ML 3ML SQ SCH ×3 (07:35→20:15)
[2020-09-29] MEDS: CARVEDILOL 3.125 MG TABLET PO SCH ×2 (08:05→20:13)
[2020-09-29] MEDS: ASPIRIN 81 MG EC TAB PO SCH (08:06)
[2020-09-29 08:55] LABS: HEMATOCRIT 26.1 % (42-54); MEAN CORPUSCULAR HEMOGLOBIN 27.9 pg (27.0-33.0); MEAN CORPUSCULAR HGB CONC 31.8 g/dL (32.0-36.0); MEAN CORPUSCULAR VOLUME 87.6 fL (79-99); NUCLEATED RED BLOOD CELLS 0.9 % (0.0-0.19); RED BLOOD CELL COUNT(AUTO) 2.98 MIL/uL (4.50-6.20); RED CELL DISTRIBUTION WIDTH 16.9 % (11.0-15.5); WHITE BLOOD COUNT (AUTO) 14.2 K/uL (4.8-10.8)
[2020-09-29] MEDS: FAMOTIDINE/PF 20 MG/2 ML VIAL IV SCH (08:57)
[2020-09-29] MEDS: MAGNESIUM 2GM PREMIX 50ML 50 ML IV PRN (08:58)
[2020-09-29 09:09] LABS: INR 1.22 (0.85-1.15); PROTHROMBIN TIME 12.8 SEC (9.6-11.6)
[2020-09-29 09:11] LABS: PARTIAL THROMBOPLASTIN TIME 30.2 SEC (26.3-35.5)
[2020-09-29 09:12] LABS: ALBUMIN 2.5 g/dL (3.5-5.0); BILIRUBIN,TOTAL 0.7 mg/dL (0.2-1.0); CREATININE 0.9 mg/dL (0.5-1.5); POTASSIUM 4.9 mmol/L (3.5-5.1); TOTAL PROTEIN, SERUM 5.6 g/dL (6.0-8.3)
[2020-09-29] MEDS: FUROSEMIDE 20 MG TABLET PO SCH ×2 (14:58→17:00)
[2020-09-29] MEDS: FAMOTIDINE 20MG TAB 20 MG TAB PO SCH (20:12)
[2020-09-29] MEDS: ATORVASTATIN CALCIUM 40 MG TABLET PO SCH (20:13)
[2020-09-29 21:35] LABS: HEMATOCRIT 26.2 % (42-54); MEAN CORPUSCULAR HGB CONC 31.7 g/dL (32.0-36.0); MEAN CORPUSCULAR VOLUME 88.5 fL (79-99); NUCLEATED RED BLOOD CELLS 1.3 % (0.0-0.19); RED BLOOD CELL COUNT(AUTO) 2.96 MIL/uL (4.50-6.20); RED CELL DISTRIBUTION WIDTH 16.4 % (11.0-15.5); WHITE BLOOD COUNT (AUTO) 13.4 K/uL (4.8-10.8)
[2020-09-29 21:51] LABS: ALBUMIN 2.6 g/dL (3.5-5.0); BILIRUBIN,TOTAL 0.7 mg/dL (0.2-1.0); POTASSIUM 4.3 mmol/L (3.5-5.1); TOTAL PROTEIN, SERUM 5.7 g/dL (6.0-8.3)
[2020-09-30 00:01] VITALS: BP 133/53
[2020-09-30 05:07] VITALS: BP 122/63
[2020-09-30 05:26] LABS: INR 1.18 (0.85-1.15); PROTHROMBIN TIME 12.4 SEC (9.6-11.6)
[2020-09-30] MEDS: INSULIN HUMULIN R 100 UNIT/ML 3ML SQ SCH ×4 (05:45→20:20)
[2020-09-30 07:51] VITALS: BP 132/50
[2020-09-30] MEDS: FAMOTIDINE 20MG TAB 20 MG TAB PO SCH ×2 (10:24→20:18)
[2020-09-30] MEDS: METOPROLOL TARTRATE 25 MG TAB PO SCH ×2 (10:24→20:17)
[2020-09-30] MEDS: ASPIRIN 81 MG EC TAB PO SCH (10:24)
[2020-09-30] MEDS: FUROSEMIDE 20 MG TABLET PO SCH ×2 (10:29→17:00)
[2020-09-30 12:00] VITALS: BP 151/67
[2020-09-30 16:00] VITALS: BP 155/69
[2020-09-30] MEDS: TRAMADOL HCL 50 MG TABLET PO PRN (17:00)
[2020-09-30] MEDS: ENOXAPARIN SODIUM 30 MG/0.3 ML SQ SCH (20:18)
[2020-09-30] MEDS: ATORVASTATIN CALCIUM 40 MG TABLET PO SCH (20:18)
[2020-09-30 20:53] VITALS: BP 148/77
[2020-10-01] VITALS (8 sets, daily range): BP systolic 118–158; BP diastolic 54–98
[2020-10-01 05:22] LABS: HEMATOCRIT 27.5 % (42-54); MEAN CORPUSCULAR HEMOGLOBIN 27.6 pg (27.0-33.0); MEAN CORPUSCULAR HGB CONC 32.4 g/dL (32.0-36.0); MEAN CORPUSCULAR VOLUME 85.1 fL (79-99); NUCLEATED RED BLOOD CELLS 3.8 % (0.0-0.19); RED BLOOD CELL COUNT(AUTO) 3.23 MIL/uL (4.50-6.20); RED CELL DISTRIBUTION WIDTH 15.6 % (11.0-15.5); WHITE BLOOD COUNT (AUTO) 10.7 K/uL (4.8-10.8)
[2020-10-01 05:42] LABS: CREATININE 0.8 mg/dL (0.5-1.5); POTASSIUM 4.1 mmol/L (3.5-5.1)
[2020-10-01 06:01] LABS: INR 1.23 (0.85-1.15); PROTHROMBIN TIME 12.9 SEC (9.6-11.6)
[2020-10-01 06:02] LABS: PARTIAL THROMBOPLASTIN TIME 29.2 SEC (26.3-35.5)
[2020-10-01] MEDS: INSULIN HUMULIN R 100 UNIT/ML 3ML SQ SCH ×4 (06:11→21:06)
[2020-10-01] MEDS: FAMOTIDINE 20MG TAB 20 MG TAB PO SCH ×2 (07:57→21:02)
[2020-10-01] MEDS: ASPIRIN 81 MG EC TAB PO SCH (07:57)
[2020-10-01] MEDS: METOPROLOL TARTRATE 25 MG TAB PO SCH ×2 (07:57→21:02)
[2020-10-01] MEDS: FUROSEMIDE 20 MG TABLET PO SCH ×2 (07:57→16:32)
[2020-10-01] MEDS: TRAMADOL HCL 50 MG TABLET PO PRN ×2 (08:00→22:01)
[2020-10-01] MEDS: ATORVASTATIN CALCIUM 40 MG TABLET PO SCH (21:01)
[2020-10-01] MEDS: ENOXAPARIN SODIUM 30 MG/0.3 ML SQ SCH (21:11)
[2020-10-01] MEDS ORDERED: TRAMADOL HCL 50 MG TABLET ONE (21:25)
[2020-10-02 03:47] LABS: BASOPHILS % (AUTO) 0.4 % (0.0-5.0); EOSINOPHILS % (AUTO) 0.3 % (0.0-8.0); HEMATOCRIT 27.2 % (42-54); LYMPHOCYTES % (AUTO) 18.2 % (21.0-51.0); MEAN CORPUSCULAR HEMOGLOBIN 27.6 pg (27.0-33.0); MEAN CORPUSCULAR HGB CONC 32.4 g/dL (32.0-36.0); MEAN CORPUSCULAR VOLUME 85.3 fL (79-99); NEUTROPHILS % (AUTO) 62.8 % (40.0-77.0); PLATELET COUNT (AUTO) 227 K/uL (130-400); RED BLOOD CELL COUNT(AUTO) 3.19 MIL/uL (4.50-6.20); WHITE BLOOD COUNT (AUTO) 9.9 K/uL (4.8-10.8)
[2020-10-02 04:06] LABS: ALBUMIN 2.3 g/dL (3.5-5.0); CREATININE 0.7 mg/dL (0.5-1.5); POTASSIUM 3.8 mmol/L (3.5-5.1); TOTAL PROTEIN, SERUM 5.3 g/dL (6.0-8.3)
[2020-10-02 04:11] VITALS: BP 144/80
[2020-10-02] MEDS: INSULIN HUMULIN R 100 UNIT/ML 3ML SQ SCH ×4 (06:00→21:50)
[2020-10-02 07:00] VITALS: BP 157/75
[2020-10-02] MEDS: METOPROLOL TARTRATE 25 MG TAB PO SCH (08:23)
[2020-10-02] MEDS: FERROUS SULFATE 325 MG TABLET.DR PO SCH (08:24)
[2020-10-02] MEDS: FAMOTIDINE 20MG TAB 20 MG TAB PO SCH ×2 (08:24→20:24)
[2020-10-02] MEDS: ASPIRIN 81 MG EC TAB PO SCH (08:24)
[2020-10-02] MEDS: FUROSEMIDE 20 MG TABLET PO SCH ×2 (08:24→17:07)
[2020-10-02] MEDS: TRAMADOL HCL 50 MG TABLET PO PRN (10:15)
[2020-10-02 11:00] VITALS: BP 155/73
[2020-10-02] MEDS ORDERED: HEPARIN SODIUM 5000UNIT/ML 1ML VIAL IV SCH (14:15)
[2020-10-02] MEDS ORDERED: HEPARIN SODIUM/PF 100UNIT/ML 5ML SYRINGE IV SCH (14:15)
[2020-10-02 16:00] VITALS: BP 160/78
[2020-10-02] MEDS: METOPROLOL TARTRATE 50 MG TAB PO SCH (20:24)
[2020-10-02] MEDS: ATORVASTATIN CALCIUM 40 MG TABLET PO SCH (20:24)
[2020-10-02] MEDS: ENOXAPARIN SODIUM 30 MG/0.3 ML SQ SCH (20:25)
[2020-10-02 21:27] VITALS: BP 149/61
[2020-10-03 00:48] VITALS: BP 125/50
[2020-10-03 04:20] VITALS: BP 133/58
[2020-10-03 06:58] LABS: BASOPHILS % (AUTO) 0.5 % (0.0-5.0); EOSINOPHILS % (AUTO) 0.5 % (0.0-8.0); HEMATOCRIT 28.1 % (42-54); LYMPHOCYTES % (AUTO) 16.6 % (21.0-51.0); MEAN CORPUSCULAR HEMOGLOBIN 27.1 pg (27.0-33.0); MEAN CORPUSCULAR HGB CONC 31.7 g/dL (32.0-36.0); MEAN CORPUSCULAR VOLUME 85.7 fL (79-99); MONOCYTES % (AUTO) 13.1 % (3.0-13.0); NUCLEATED RED BLOOD CELLS 2.9 % (0.0-0.19); PLATELET COUNT (AUTO) 285 K/uL (130-400); RED BLOOD CELL COUNT(AUTO) 3.28 MIL/uL (4.50-6.20); RED CELL DISTRIBUTION WIDTH 15.9 % (11.0-15.5); WHITE BLOOD COUNT (AUTO) 10.4 K/uL (4.8-10.8)
[2020-10-03 07:25] LABS: ALBUMIN 2.3 g/dL (3.5-5.0); BILIRUBIN,TOTAL 1.1 mg/dL (0.2-1.0); CREATININE 0.7 mg/dL (0.5-1.5); POTASSIUM 3.9 mmol/L (3.5-5.1); TOTAL PROTEIN, SERUM 5.4 g/dL (6.0-8.3)
[2020-10-03] MEDS: INSULIN HUMULIN R 100 UNIT/ML 3ML SQ SCH ×4 (07:30→22:45)
[2020-10-03] MEDS: ASPIRIN 81 MG EC TAB PO SCH (09:23)
[2020-10-03] MEDS: FAMOTIDINE 20MG TAB 20 MG TAB PO SCH ×2 (09:23→22:46)
[2020-10-03] MEDS: TRAMADOL HCL 50 MG TABLET PO PRN (09:23)
[2020-10-03] MEDS: FUROSEMIDE 20 MG TABLET PO SCH ×2 (09:24→17:09)
[2020-10-03] MEDS: FERROUS SULFATE 325 MG TABLET.DR PO SCH (09:24)
[2020-10-03] MEDS: METOPROLOL TARTRATE 50 MG TAB PO SCH ×2 (09:24→22:46)
[2020-10-03 12:20] VITALS: BP 133/62
[2020-10-03 16:57] VITALS: BP 127/69
[2020-10-03 20:00] VITALS: BP 121/49
[2020-10-03] MEDS: LISINOPRIL 5 MG TABLET PO SCH (22:46)
[2020-10-03] MEDS: ENOXAPARIN SODIUM 30 MG/0.3 ML SQ SCH (22:46)
[2020-10-03] MEDS: ATORVASTATIN CALCIUM 40 MG TABLET PO SCH (22:46)
[2020-10-03 23:48] VITALS: BP 123/61
[2020-10-04 04:00] VITALS: BP 123/59
[2020-10-04 04:54] LABS: BASOPHILS % (AUTO) 0.3 % (0.0-5.0); EOSINOPHILS % (AUTO) 0.6 % (0.0-8.0); HEMATOCRIT 25.4 % (42-54); LYMPHOCYTES % (AUTO) 15.9 % (21.0-51.0); MEAN CORPUSCULAR HGB CONC 32.3 g/dL (32.0-36.0); MEAN CORPUSCULAR VOLUME 86.7 fL (79-99); MONOCYTES % (AUTO) 13.3 % (3.0-13.0); NUCLEATED RED BLOOD CELLS 1.4 % (0.0-0.19); PLATELET COUNT (AUTO) 305 K/uL (130-400); RED BLOOD CELL COUNT(AUTO) 2.93 MIL/uL (4.50-6.20); RED CELL DISTRIBUTION WIDTH 16.2 % (11.0-15.5); WHITE BLOOD COUNT (AUTO) 9.9 K/uL (4.8-10.8)
[2020-10-04 05:12] LABS: ALBUMIN 2.5 g/dL (3.5-5.0); BILIRUBIN,TOTAL 0.9 mg/dL (0.2-1.0); CREATININE 0.8 mg/dL (0.5-1.5); POTASSIUM 3.7 mmol/L (3.5-5.1); TOTAL PROTEIN, SERUM 5.5 g/dL (6.0-8.3)
[2020-10-04] MEDS: INSULIN HUMULIN R 100 UNIT/ML 3ML SQ SCH (05:22)
[2020-10-04 08:00] VITALS: BP 134/73
[2020-10-04] MEDS: FAMOTIDINE 20MG TAB 20 MG TAB PO SCH (10:12)
[2020-10-04] MEDS: FERROUS SULFATE 325 MG TABLET.DR PO SCH (10:12)
[2020-10-04] MEDS: ASPIRIN 81 MG EC TAB PO SCH (10:12)
[2020-10-04] MEDS: METOPROLOL TARTRATE 50 MG TAB PO SCH (10:13)
[2020-10-04] MEDS: FUROSEMIDE 20 MG TABLET PO SCH (10:13)
[2020-10-04] MEDS: LISINOPRIL 5 MG TABLET PO SCH (10:13)
[2020-10-04 12:00] VITALS: BP 136/65
[2020-10-04] MEDS ORDERED: TRAM50TA4 PO (12:03)
[2020-10-04] MEDS ORDERED: METO50 PO (12:03)
[2020-10-07] MEDS ORDERED: NITROGLYCERIN 0.4 MG SL TAB SL ONE (06:10)
== END 2020-10-04 15:09 | disposition home or self-care (01) | DRG 161 ==
LOC: EDH 11:08 → EDHIP 11:09 → OBSVTOIN 11:09 → 4CH 22:02 → 2CH 09-25 18:20 → 4DH 09-29 16:08
PROVIDERS: ADMIT Family Medicine; ATTEND Family Medicine
PROC: 02HA3RZ Insertion of Short-term External Heart Assist System into Heart, Percutaneous Approach (ICD-10-PCS; 2020-09-26)
PROC: 5A0221D Assistance with Cardiac Output using Impeller Pump, Continuous (ICD-10-PCS; 2020-09-26)
PROC: 0210099 Bypass Coronary Artery, One Artery from Left Internal Mammary with Autologous Venous Tissue, Open Approach (ICD-10-PCS; principal; 2020-09-26 15:48)
PROC: 06BP4ZZ Excision of Right Saphenous Vein, Percutaneous Endoscopic Approach (ICD-10-PCS; 2020-09-26 15:48)
PROC: 021209W Bypass Coronary Artery, Three Arteries from Aorta with Autologous Venous Tissue, Open Approach (ICD-10-PCS; 2020-09-26 15:48)
PROC: 30233N1 Transfusion of Nonautologous Red Blood Cells into Peripheral Vein, Percutaneous Approach (ICD-10-PCS; 2020-09-27)
PROC: 04QK0ZZ Repair Right Femoral Artery, Open Approach (ICD-10-PCS; 2020-09-28)
PROC: 02PA3RZ Removal of Short-term External Heart Assist System from Heart, Percutaneous Approach (ICD-10-PCS; 2020-09-28)
PROC: 30233K1 Transfusion of Nonautologous Frozen Plasma into Peripheral Vein, Percutaneous Approach (ICD-10-PCS; 2020-09-28)
PROC: 30233R1 Transfusion of Nonautologous Platelets into Peripheral Vein, Percutaneous Approach (ICD-10-PCS; 2020-09-28)
DX: I25.110 Atherosclerotic heart disease of native coronary artery with unstable angina pectoris (principal); I42.0 Dilated cardiomyopathy; I50.43 Acute on chronic combined systolic (congestive) and diastolic (congestive) heart failure; I49.3 Ventricular premature depolarization; R57.0 Cardiogenic shock; D62 Acute posthemorrhagic anemia; R09.89 Other specified symptoms and signs involving the circulatory and respiratory systems; Z89.612 Acquired absence of left leg above knee; E11.51 Type 2 diabetes mellitus with diabetic peripheral angiopathy without gangrene; I11.0 Hypertensive heart disease with heart failure; E78.00 Pure hypercholesterolemia, unspecified; E78.5 Hyperlipidemia, unspecified; I25.5 Ischemic cardiomyopathy; J98.4 Other disorders of lung; Z79.899 Other long term (current) drug therapy; S10.83XA Contusion of other specified part of neck, initial encounter; X58.XXXA Exposure to other specified factors, initial encounter; Y93.89 Activity, other specified; Y92.89 Other specified places as the place of occurrence of the external cause; Y99.8 Other external cause status
CPT/HCPCS: 33990; 36415; 36430; 36600; 71045; 78452; 80048; 80053; 80061; 81001; 82330; 82435; 82550; 82803; 82947; 82948; 83036; 83605; 83735; 83874; 83880; 84100; 84132; 84295; 84484; 85018; 85025; 85027; 85347; 85610; 85730; 86850; 86900; 86901; 86923; 86927; 93005; 93017; 93458; 93880; 94002; 94003; 94010; 94150; 94640; 96374; 97039; A4344; A4606; A7048; A9500; C1894; G0378; J0171; J0583; J0610; J0690; J1100; J1642; J1644; J1650; J1815; J1940; J2001; J2250; J2405; J2440; J2704; J2720; J2785; J3010; J3475; J3480; J3490; J7030; J7040; J7060; J7070; J7120; P9016; P9017; P9034; Q9967

== ENCOUNTER 2020-10-06 22:50 | Inpatient (IN) | payer MEDICAID, MEDICARE, OTHER ==
[~2020-10-06] VITALS: Ht 157.5 cm; Wt 65.0 kg
[~2020-10-06 22:50] MED LIST: AEC81 PO; ATOR40TA71 PO; CLOP75TA32 PO; FERR325T22 PO; FURO80TA87 PO; LISI5TAB21 PO; METO50 PO; SPIR100T5 PO; TRAM50TA4 PO
[2020-10-06 23:09] LABS: BASOPHILS % (AUTO) 0.1 % (0.0-5.0); EOSINOPHILS % (AUTO) 0.3 % (0.0-8.0); HEMATOCRIT 32.4 % (42-54); LYMPHOCYTES % (AUTO) 10.5 % (21.0-51.0); MEAN CORPUSCULAR HEMOGLOBIN 28.1 pg (27.0-33.0); MEAN CORPUSCULAR HGB CONC 32.4 g/dL (32.0-36.0); MEAN CORPUSCULAR VOLUME 86.6 fL (79-99); MONOCYTES % (AUTO) 8.9 % (3.0-13.0); NEUTROPHILS % (AUTO) 79.5 % (40.0-77.0); NUCLEATED RED BLOOD CELLS 0.2 % (0.0-0.19); PLATELET COUNT (AUTO) 494 K/uL (130-400); RED BLOOD CELL COUNT(AUTO) 3.74 MIL/uL (4.50-6.20); RED CELL DISTRIBUTION WIDTH 17.4 % (11.0-15.5); WHITE BLOOD COUNT (AUTO) 11.2 K/uL (4.8-10.8)
[2020-10-06 23:23] LABS: CREATININE 0.9 mg/dL (0.5-1.5); POTASSIUM 3.4 mmol/L (3.5-5.1)
[2020-10-06 23:24] LABS: APPEARANCE,URINE Clear (CLEAR); BILIRUBIN,URINE Negative (NEGATIVE); COLOR,URINE Yellow (YELLOW); GLUCOSE, URINE (UA) 500 mg/dL (NEGATIVE); KETONES,URINE Negative (NEGATIVE); LEUKOCYTE ESTERASE ,URINE Trace (NEGATIVE); NITRATE,URINE Negative (NEGATIVE); OCCULT BLOOD,URINE Negative (NEGATIVE); PH,URINE 7.5 (5.0-8.0); PROTEIN,URINE Negative (NEGATIVE)
[2020-10-06 23:26] LABS: INR 1.12 (0.85-1.15); PROTHROMBIN TIME 11.9 SEC (9.6-11.6)
[2020-10-06 23:27] LABS: B-TYPE NATRIURETIC PEPTIDE 1350 pg/mL (0-100); PARTIAL THROMBOPLASTIN TIME 25.7 SEC (26.3-35.5)
[2020-10-06 23:29] LABS: ALBUMIN 3.3 g/dL (3.5-5.0); BILIRUBIN,TOTAL 1.2 mg/dL (0.2-1.0); MAGNESIUM 1.7 mg/dL (1.80-2.40); TOTAL PROTEIN, SERUM 7.5 g/dL (6.0-8.3)
[2020-10-06 23:34] LABS: BACTERIA,URINE Rare /HPF (None Seen); RBC,URINE 0-1 /HPF (0-1)
[2020-10-06] MEDS ORDERED: POTASSIUM BICARB/CIT AC 25 MEQ TABLET.EFF ONE (23:34)
[2020-10-06] MEDS ORDERED: INSULIN HUMULIN R 100 UNIT/ML 3ML ONE (23:35)
[2020-10-06] MEDS ORDERED: MAGNESIUM OXIDE 400 MG TABLET PO ONE (23:41)
[2020-10-06] MEDS ORDERED: FUROSEMIDE 40MG VIAL ONE (23:41)
[2020-10-07 00:15] LABS: ERYTHROCYTE SEDIMENTATION RATE 38 MM/HR (0-20)
[2020-10-07] MEDS ORDERED: NITROGLYCERIN 1GM OINT 1 INCH/1GM TD ONE (00:22)
[2020-10-07] MEDS ORDERED: DEXTROSE 50%-WATER 50 ML DISP.SYRIN IV PRN (00:30)
[2020-10-07] MEDS ORDERED: NITROGLYCERIN 0.4 MG SL TAB SL PRN (00:30)
[2020-10-07] MEDS ORDERED: LACTULOSE 20 GM/30 ML UDCUP PO PRN (00:30)
[2020-10-07] MEDS: FUROSEMIDE 20MG VIAL IV SCH ×2 (00:30→12:08)
[2020-10-07] MEDS ORDERED: ONDANSETRON 4MG INJ IV PRN (00:30)
[2020-10-07] MEDS ORDERED: ACETAMINOPHEN 325 MG TAB PO PRN ×2 (00:30)
[2020-10-07] MEDS ORDERED: GLUCAGON 1MG KIT 1 MG ML IM PRN (00:30)
[2020-10-07 05:23] LABS: BASOPHILS % (AUTO) 0.2 % (0.0-5.0); EOSINOPHILS % (AUTO) 0.2 % (0.0-8.0); HEMATOCRIT 31.3 % (42-54); LYMPHOCYTES % (AUTO) 10.5 % (21.0-51.0); MEAN CORPUSCULAR HGB CONC 32.6 g/dL (32.0-36.0); MONOCYTES % (AUTO) 9.5 % (3.0-13.0); NEUTROPHILS % (AUTO) 78.7 % (40.0-77.0); PLATELET COUNT (AUTO) 478 K/uL (130-400); RED BLOOD CELL COUNT(AUTO) 3.64 MIL/uL (4.50-6.20); RED CELL DISTRIBUTION WIDTH 17.1 % (11.0-15.5); WHITE BLOOD COUNT (AUTO) 10.8 K/uL (4.8-10.8)
[2020-10-07 05:25] VITALS: BP 141/67
[2020-10-07 05:43] LABS: CREATININE 0.8 mg/dL (0.5-1.5); POTASSIUM 3.7 mmol/L (3.5-5.1)
[2020-10-07 06:17] VITALS: BP 158/51
[2020-10-07 07:30] VITALS: BP 158/58
[2020-10-07] MEDS: INSULIN HUMULIN R 100 UNIT/ML 3ML SQ SCH ×4 (07:51→21:07)
[2020-10-07 11:00] VITALS: BP 140/69
[2020-10-07] MEDS: FAMOTIDINE 20MG TAB PO SCH ×2 (12:08→20:34)
[2020-10-07] MEDS: ASPIRIN 81MG CHEW TAB PO SCH (13:15)
[2020-10-07] MEDS: LISINOPRIL 10 MG TABLET PO SCH (13:15)
[2020-10-07] MEDS: FERROUS SULFATE 325 MG TABLET.DR PO SCH (13:15)
[2020-10-07] MEDS: AMIODARONE 200 MG TABLET PO SCH (13:15)
[2020-10-07 16:00] VITALS: BP 142/69
[2020-10-07 20:00] VITALS: BP 140/69
[2020-10-07] MEDS: ATORVASTATIN 40 MG TABLET PO SCH (20:33)
[2020-10-07] MEDS: METOPROLOL TARTRATE 25 MG TAB PO SCH (20:33)
[2020-10-08] VITALS: BP 137/64
[2020-10-08] MEDS: FUROSEMIDE 40MG VIAL IV SCH ×2 (00:36→12:01)
[2020-10-08 04:09] VITALS: BP 132/64
[2020-10-08] MEDS: INSULIN HUMULIN R 100 UNIT/ML 3ML SQ SCH ×4 (06:41→20:47)
[2020-10-08 06:53] LABS: BASOPHILS % (AUTO) 0.1 % (0.0-5.0); EOSINOPHILS % (AUTO) 0.3 % (0.0-8.0); HEMATOCRIT 29.2 % (42-54); LYMPHOCYTES % (AUTO) 9.9 % (21.0-51.0); MEAN CORPUSCULAR HEMOGLOBIN 27.5 pg (27.0-33.0); MEAN CORPUSCULAR HGB CONC 31.5 g/dL (32.0-36.0); MEAN CORPUSCULAR VOLUME 87.2 fL (79-99); MONOCYTES % (AUTO) 8.7 % (3.0-13.0); NEUTROPHILS % (AUTO) 80.6 % (40.0-77.0); PLATELET COUNT (AUTO) 499 K/uL (130-400); RED BLOOD CELL COUNT(AUTO) 3.35 MIL/uL (4.50-6.20); RED CELL DISTRIBUTION WIDTH 17.1 % (11.0-15.5); WHITE BLOOD COUNT (AUTO) 13.4 K/uL (4.8-10.8)
[2020-10-08 07:04] LABS: CREATININE 0.6 mg/dL (0.5-1.5); POTASSIUM 3.9 mmol/L (3.5-5.1)
[2020-10-08 07:08] LABS: B-TYPE NATRIURETIC PEPTIDE 916 pg/mL (0-100)
[2020-10-08 07:55] VITALS: BP 132/60
[2020-10-08] MEDS ORDERED: KCL 20 MEQ ERTAB PO SCH (08:45)
[2020-10-08] MEDS ORDERED: ATORVASTATIN 40 MG TABLET PO SCH (09:00)
[2020-10-08] MEDS ORDERED: ASPIRIN 81 MG EC TAB PO SCH (09:00)
[2020-10-08] MEDS ORDERED: LISINOPRIL 5 MG TABLET PO SCH (09:00)
[2020-10-08] MEDS ORDERED: NON-FORMULARY MEDICATION 1 EACH (Ferrous Sulfate 325 MG) PO SCH (09:00)
[2020-10-08] MEDS: LISINOPRIL 10 MG TABLET PO SCH (09:18)
[2020-10-08] MEDS: FAMOTIDINE 20MG TAB PO SCH ×2 (09:18→20:40)
[2020-10-08] MEDS: METOPROLOL TARTRATE 25 MG TAB PO SCH (09:18)
[2020-10-08] MEDS: FERROUS SULFATE 325 MG TABLET.DR PO SCH (09:18)
[2020-10-08] MEDS: AMIODARONE 200 MG TABLET PO SCH (09:18)
[2020-10-08] MEDS: ASPIRIN 81MG CHEW TAB PO SCH (09:18)
[2020-10-08] MEDS: CLOPIDOGREL 75MG TAB PO SCH (09:18)
[2020-10-08 11:22] VITALS: BP 133/91
[2020-10-08 16:35] VITALS: BP 115/53
[2020-10-08 20:00] VITALS: BP 104/59
[2020-10-08] MEDS: ATORVASTATIN 40 MG TABLET PO SCH (20:40)
[2020-10-08] MEDS: METOPROLOL TARTRATE 50 MG TAB PO SCH (20:40)
[2020-10-09] VITALS (7 sets, daily range): BP systolic 109–130; BP diastolic 42–69
[2020-10-09] MEDS: INSULIN HUMULIN R 100 UNIT/ML 3ML SQ SCH ×4 (05:29→20:24)
[2020-10-09] MEDS: FUROSEMIDE 40MG VIAL IV SCH ×2 (05:40→17:22)
[2020-10-09 06:14] LABS: CREATININE 0.8 mg/dL (0.5-1.5); MAGNESIUM 1.6 mg/dL (1.80-2.40); POTASSIUM 3.9 mmol/L (3.5-5.1)
[2020-10-09] MEDS: ASPIRIN 81MG CHEW TAB PO SCH (08:30)
[2020-10-09] MEDS: FERROUS SULFATE 325 MG TABLET.DR PO SCH (08:30)
[2020-10-09] MEDS: AMIODARONE 200 MG TABLET PO SCH (08:31)
[2020-10-09] MEDS: METOPROLOL TARTRATE 50 MG TAB PO SCH ×2 (08:31→19:37)
[2020-10-09] MEDS: LISINOPRIL 10 MG TABLET PO SCH (08:31)
[2020-10-09] MEDS: FAMOTIDINE 20MG TAB PO SCH ×2 (08:31→19:37)
[2020-10-09] MEDS: CLOPIDOGREL 75MG TAB PO SCH (08:31)
[2020-10-09] MEDS: MAGNESIUM 2GM PREMIX 50ML 50 ML IV PRN (08:40)
[2020-10-09] MEDS: ATORVASTATIN 40 MG TABLET PO SCH (19:37)
[2020-10-09] MEDS: INSULIN GLARGINE 100 UNITS/ML 10 ML VIAL SQ SCH (20:23)
[2020-10-10 03:32] VITALS: BP 122/66
[2020-10-10 04:33] LABS: BASOPHILS % (AUTO) 0.2 % (0.0-5.0); EOSINOPHILS % (AUTO) 0.5 % (0.0-8.0); HEMATOCRIT 28.1 % (42-54); LYMPHOCYTES % (AUTO) 14.6 % (21.0-51.0); MEAN CORPUSCULAR HEMOGLOBIN 28.3 pg (27.0-33.0); MEAN CORPUSCULAR HGB CONC 32.7 g/dL (32.0-36.0); MEAN CORPUSCULAR VOLUME 86.5 fL (79-99); MONOCYTES % (AUTO) 10.5 % (3.0-13.0); NEUTROPHILS % (AUTO) 73.6 % (40.0-77.0); PLATELET COUNT (AUTO) 519 K/uL (130-400); RED BLOOD CELL COUNT(AUTO) 3.25 MIL/uL (4.50-6.20); RED CELL DISTRIBUTION WIDTH 16.8 % (11.0-15.5); WHITE BLOOD COUNT (AUTO) 10.5 K/uL (4.8-10.8)
[2020-10-10 04:51] LABS: ALBUMIN 2.5 g/dL (3.5-5.0); BILIRUBIN,TOTAL 0.5 mg/dL (0.2-1.0); CREATININE 0.9 mg/dL (0.5-1.5); POTASSIUM 3.9 mmol/L (3.5-5.1); TOTAL PROTEIN, SERUM 6.3 g/dL (6.0-8.3)
[2020-10-10] MEDS: FUROSEMIDE 40MG VIAL IV SCH (05:15)
[2020-10-10] MEDS: INSULIN HUMULIN R 100 UNIT/ML 3ML SQ SCH ×4 (05:53→20:27)
[2020-10-10 08:00] VITALS: BP 104/56
[2020-10-10] MEDS: KCL 20 MEQ ERTAB PO SCH (08:51)
[2020-10-10] MEDS: CLOPIDOGREL 75MG TAB PO SCH (08:52)
[2020-10-10] MEDS: AMIODARONE 200 MG TABLET PO SCH (08:52)
[2020-10-10] MEDS: FERROUS SULFATE 325 MG TABLET.DR PO SCH (08:52)
[2020-10-10] MEDS: FAMOTIDINE 20MG TAB PO SCH ×2 (08:52→19:54)
[2020-10-10] MEDS: ASPIRIN 81MG CHEW TAB PO SCH (08:52)
[2020-10-10] MEDS: METOPROLOL TARTRATE 50 MG TAB PO SCH ×2 (08:54→19:54)
[2020-10-10] MEDS ORDERED: FUROSEMIDE 40 MG TABLET PO SCH (09:00)
[2020-10-10 12:00] VITALS: BP 135/58
[2020-10-10] MEDS: FUROSEMIDE 40 MG TABLET PO SCH (12:33)
[2020-10-10] MEDS: LISINOPRIL 10 MG TABLET PO SCH (12:34)
[2020-10-10 14:07] LABS: CREATININE 1.3 mg/dL (0.5-1.5); MAGNESIUM 1.9 mg/dL (1.80-2.40); POTASSIUM 4.4 mmol/L (3.5-5.1)
[2020-10-10 16:00] VITALS: BP 127/58
[2020-10-10] MEDS: ATORVASTATIN 40 MG TABLET PO SCH (19:54)
[2020-10-10 20:10] VITALS: BP 128/53
[2020-10-10] MEDS: INSULIN GLARGINE 100 UNITS/ML 10 ML VIAL SQ SCH (20:26)
[2020-10-10 23:30] VITALS: BP 111/48
[2020-10-11 04:04] VITALS: BP 135/57
[2020-10-11 05:33] LABS: BASOPHILS % (AUTO) 0.2 % (0.0-5.0); EOSINOPHILS % (AUTO) 1.1 % (0.0-8.0); HEMATOCRIT 28.5 % (42-54); LYMPHOCYTES % (AUTO) 14.9 % (21.0-51.0); MEAN CORPUSCULAR HEMOGLOBIN 27.8 pg (27.0-33.0); MEAN CORPUSCULAR HGB CONC 32.3 g/dL (32.0-36.0); MEAN CORPUSCULAR VOLUME 86.1 fL (79-99); MONOCYTES % (AUTO) 10.8 % (3.0-13.0); NEUTROPHILS % (AUTO) 72.5 % (40.0-77.0); PLATELET COUNT (AUTO) 480 K/uL (130-400); RED BLOOD CELL COUNT(AUTO) 3.31 MIL/uL (4.50-6.20); RED CELL DISTRIBUTION WIDTH 16.1 % (11.0-15.5); WHITE BLOOD COUNT (AUTO) 8.7 K/uL (4.8-10.8)
[2020-10-11 05:49] LABS: ALBUMIN 2.4 g/dL (3.5-5.0); BILIRUBIN,TOTAL 0.4 mg/dL (0.2-1.0); CREATININE 0.8 mg/dL (0.5-1.5); MAGNESIUM 1.8 mg/dL (1.80-2.40); POTASSIUM 4.1 mmol/L (3.5-5.1); TOTAL PROTEIN, SERUM 6.3 g/dL (6.0-8.3)
[2020-10-11] MEDS: INSULIN HUMULIN R 100 UNIT/ML 3ML SQ SCH ×3 (06:12→16:30)
[2020-10-11] MEDS: KCL 20 MEQ ERTAB PO SCH (06:30)
[2020-10-11 08:00] VITALS: BP 138/79
[2020-10-11] MEDS: ASPIRIN 81MG CHEW TAB PO SCH (09:28)
[2020-10-11] MEDS: FAMOTIDINE 20MG TAB PO SCH (09:29)
[2020-10-11] MEDS: METOPROLOL TARTRATE 50 MG TAB PO SCH (09:29)
[2020-10-11] MEDS: FUROSEMIDE 40 MG TABLET PO SCH (09:29)
[2020-10-11] MEDS: LISINOPRIL 10 MG TABLET PO SCH (09:29)
[2020-10-11] MEDS: CLOPIDOGREL 75MG TAB PO SCH (09:29)
[2020-10-11] MEDS: AMIODARONE 200 MG TABLET PO SCH (09:29)
[2020-10-11] MEDS: FERROUS SULFATE 325 MG TABLET.DR PO SCH (09:29)
[2020-10-11] MEDS: MAGNESIUM 2GM PREMIX 50ML 50 ML IV PRN (09:30)
[2020-10-11 12:00] VITALS: BP 144/68
[2020-10-11 16:04] VITALS: BP 133/61
[2020-10-11] MEDS ORDERED: FERR324T4 PO (16:37)
[2020-10-11] MEDS ORDERED: LISI10TA24 PO (16:37)
[2020-10-11] MEDS ORDERED: POTA10CA44 PO (16:42)
[2020-10-11] MEDS ORDERED: MAGNESIUM 2GM PREMIX 50ML 50 ML IV SCH (16:45)
[2020-10-11] MEDS ORDERED: AMIO200T44 PO (17:07)
== END 2020-10-11 18:30 | disposition home or self-care (01) | DRG 194 ==
LOC: EDH 22:50 → OBSVTOIN 22:51 → EDHIP 22:51 → 4DH 10-07 05:00
PROVIDERS: ADMIT Internal Medicine; ATTEND Internal Medicine
DX: I11.0 Hypertensive heart disease with heart failure (principal); I50.23 Acute on chronic systolic (congestive) heart failure; D62 Acute posthemorrhagic anemia; I49.3 Ventricular premature depolarization; E78.5 Hyperlipidemia, unspecified; I25.10 Atherosclerotic heart disease of native coronary artery without angina pectoris; R06.6 Hiccough; Z95.1 Presence of aortocoronary bypass graft; R07.9 Chest pain, unspecified; Z87.891 Personal history of nicotine dependence; Z89.612 Acquired absence of left leg above knee; Z83.3 Family history of diabetes mellitus; I73.9 Peripheral vascular disease, unspecified; Z82.49 Family history of ischemic heart disease and other diseases of the circulatory system; Z20.822 Contact with and (suspected) exposure to COVID-19
CPT/HCPCS: 36415; 71045; 80048; 80053; 81001; 82550; 82948; 83036; 83735; 83880; 84145; 84484; 85025; 85610; 85651; 85730; 86140; 87426; 93005; 99291; G0378; J1815; J1940; J3475; Q0161; U0003

== ENCOUNTER 2020-12-01 12:57 | Inpatient (IN) | payer MEDICARE ==
[~2020-12-01] VITALS: Ht 160 cm; Wt 60.9 kg
[~2020-12-01 12:57] MED LIST changes: +AMIO200T44 PO; +FERR324T4 PO; +LISI10TA24 PO; -LISI5TAB21 PO; +POTA10CA44 PO
[2020-12-01 13:39] LABS: BASOPHILS % (AUTO) 0.8 % (0.0-5.0); EOSINOPHILS % (AUTO) 0.8 % (0.0-8.0); HEMATOCRIT 30.4 % (42-54); LYMPHOCYTES % (AUTO) 32.1 % (21.0-51.0); MEAN CORPUSCULAR HGB CONC 31.3 g/dL (32.0-36.0); MEAN CORPUSCULAR VOLUME 86.4 fL (79-99); MONOCYTES % (AUTO) 10.6 % (3.0-13.0); NEUTROPHILS % (AUTO) 55.5 % (40.0-77.0); PLATELET COUNT (AUTO) 419 K/uL (130-400); RED BLOOD CELL COUNT(AUTO) 3.52 MIL/uL (4.50-6.20); RED CELL DISTRIBUTION WIDTH 13.2 % (11.0-15.5)
[2020-12-01 13:52] LABS: PROTHROMBIN TIME 10.9 SEC (9.6-11.6)
[2020-12-01 13:53] LABS: ALBUMIN 3.4 g/dL (3.5-5.0); BILIRUBIN,TOTAL 0.2 mg/dL (0.2-1.0); CREATININE 1.1 mg/dL (0.5-1.5); PARTIAL THROMBOPLASTIN TIME 25.6 SEC (26.3-35.5); POTASSIUM 4.4 mmol/L (3.5-5.1); TOTAL PROTEIN, SERUM 7.2 g/dL (6.0-8.3)
[2020-12-01] MEDS ORDERED: INSULIN HUMULIN R 100 UNIT/ML 3ML ONE ×2 (15:18→21:54)
[2020-12-01] MEDS ORDERED: 0.9%NACL 1000ML 1,000 ML IV ONE ×2 (15:18→17:25)
[2020-12-01 15:19] LABS: APPEARANCE,URINE Clear (CLEAR); BILIRUBIN,URINE Negative (NEGATIVE); COLOR,URINE Yellow (YELLOW); GLUCOSE, URINE (UA) >=1000 mg/dL (NEGATIVE); KETONES,URINE Negative (NEGATIVE); LEUKOCYTE ESTERASE ,URINE Negative (NEGATIVE); NITRATE,URINE Negative (NEGATIVE); OCCULT BLOOD,URINE Negative (NEGATIVE); PH,URINE 5.5 (5.0-8.0); PROTEIN,URINE Negative (NEGATIVE); UROBILINOGEN,URINE 0.2 mg/dL (0.2-1.0)
[2020-12-01 15:56] LABS: BACTERIA,URINE Few /HPF (None Seen); RBC,URINE 0-1 /HPF (0-1); WBC,URINE 0-1 /HPF (0-1)
[2020-12-01 15:57] LABS: SQUAMOUS EPITHELIAL CELL,UR Few /HPF (0-2)
[2020-12-01] MEDS: CEFAZOLIN SODIUM 1 GM VIAL IVP SCH (16:30)
[2020-12-01] MEDS: 0.9%NACL 1000ML 1,000 ML IV SCH (16:30)
[2020-12-01] MEDS ORDERED: LACTULOSE 20 GM/30 ML UDCUP PO PRN (16:30)
[2020-12-01] MEDS ORDERED: ONDANSETRON 4MG INJ IV PRN (16:30)
[2020-12-01] MEDS ORDERED: VANCOMYCIN PROTOCOL PER PHARMACY IV SCH (16:30)
[2020-12-01] MEDS ORDERED: ACETAMINOPHEN 325 MG TAB PO PRN (16:30)
[2020-12-01 16:47] LABS: BASE EXCESS,VENOUS BLOOD GAS -2.3 (-2.0-3.0); HCO3,VENOUS BLOOD GAS 24.8 (21.0-28.0); PCO2,VENOUS BLOOD GAS 52 (35-48)
[2020-12-01] MEDS ORDERED: VANCOMYCIN 1G/250ML KIT 250 ML IV ONE (17:18)
[2020-12-01] MEDS: VANCOMYCIN 1G/250ML KIT 250 ML IV SCH (18:00)
[2020-12-01] MEDS: INSULIN HUMULIN R 100 UNIT/ML 3ML SQ SCH (21:00)
[2020-12-01] MEDS: FAMOTIDINE 20MG TAB PO SCH (21:00)
[2020-12-02] VITALS (7 sets, daily range): BP systolic 122–158; BP diastolic 49–78
[2020-12-02] MEDS: CEFAZOLIN SODIUM 1 GM VIAL IVP SCH ×3 (00:30→17:59)
[2020-12-02] MEDS ORDERED: CEFAZOLIN SODIUM 1 GM VIAL ONE (01:21)
[2020-12-02] MEDS: 0.9%NACL 1000ML 1,000 ML IV SCH (04:53)
[2020-12-02 05:02] LABS: BASOPHILS % (AUTO) 0.9 % (0.0-5.0); EOSINOPHILS % (AUTO) 1.5 % (0.0-8.0); HEMATOCRIT 29.1 % (42-54); LYMPHOCYTES % (AUTO) 39.6 % (21.0-51.0); MEAN CORPUSCULAR HEMOGLOBIN 26.6 pg (27.0-33.0); MEAN CORPUSCULAR HGB CONC 30.9 g/dL (32.0-36.0); MEAN CORPUSCULAR VOLUME 86.1 fL (79-99); MONOCYTES % (AUTO) 13.7 % (3.0-13.0); NEUTROPHILS % (AUTO) 43.9 % (40.0-77.0); PLATELET COUNT (AUTO) 399 K/uL (130-400); RED BLOOD CELL COUNT(AUTO) 3.38 MIL/uL (4.50-6.20); RED CELL DISTRIBUTION WIDTH 13.2 % (11.0-15.5); WHITE BLOOD COUNT (AUTO) 5.4 K/uL (4.8-10.8)
[2020-12-02 05:26] LABS: ALBUMIN 3.1 g/dL (3.5-5.0); BILIRUBIN,TOTAL 0.1 mg/dL (0.2-1.0); CREATININE 0.7 mg/dL (0.5-1.5); POTASSIUM 3.7 mmol/L (3.5-5.1); TOTAL PROTEIN, SERUM 6.6 g/dL (6.0-8.3)
[2020-12-02 05:32] LABS: HEMOGLOBIN A1C 11.4 % (4.0-6.0)
[2020-12-02] MEDS: INSULIN HUMULIN R 100 UNIT/ML 3ML SQ SCH ×6 (05:39→20:21)
[2020-12-02] MEDS ORDERED: ENOXAPARIN SODIUM 40 MG/0.4 ML SYRINGE SQ SCH (09:00)
[2020-12-02] MEDS: VANCOMYCIN 1G/250ML KIT 250 ML IV SCH ×2 (10:27→20:13)
[2020-12-02] MEDS: FAMOTIDINE 20MG TAB PO SCH ×2 (10:27→20:14)
[2020-12-02] MEDS: METOPROLOL SUCCINATE 50 MG TAB.SR.24H PO SCH ×2 (10:28→20:13)
[2020-12-02] MEDS: ENOXAPARIN SODIUM 60 MG/0.6 ML SQ SCH (20:21)
[2020-12-02] MEDS ORDERED: INSULIN GLARGINE 100 UNITS/ML 10 ML VIAL SQ SCH (21:00)
[2020-12-02] MEDS ORDERED: ENOXAPARIN SODIUM 1 MG/KG SQ SCH (21:00)
[2020-12-02] MEDS: INSULIN GLARGINE 100 UNITS/ML 10 ML VIAL SQ SCH (21:00)
[2020-12-03] MEDS: CEFAZOLIN SODIUM 1 GM VIAL IVP SCH ×3 (01:18→16:25)
[2020-12-03 03:20] VITALS: BP 137/46
[2020-12-03] MEDS: INSULIN HUMULIN R 100 UNIT/ML 3ML SQ SCH ×6 (06:08→21:31)
[2020-12-03 06:14] LABS: EOSINOPHILS % (AUTO) 1.6 % (0.0-8.0); HEMATOCRIT 28.2 % (42-54); LYMPHOCYTES % (AUTO) 37.3 % (21.0-51.0); MEAN CORPUSCULAR HEMOGLOBIN 26.2 pg (27.0-33.0); MEAN CORPUSCULAR HGB CONC 30.5 g/dL (32.0-36.0); MONOCYTES % (AUTO) 12.5 % (3.0-13.0); NEUTROPHILS % (AUTO) 47.4 % (40.0-77.0); PLATELET COUNT (AUTO) 377 K/uL (130-400); RED BLOOD CELL COUNT(AUTO) 3.28 MIL/uL (4.50-6.20); RED CELL DISTRIBUTION WIDTH 13.3 % (11.0-15.5); WHITE BLOOD COUNT (AUTO) 6.2 K/uL (4.8-10.8)
[2020-12-03] MEDS: INSULIN GLARGINE 100 UNITS/ML 10 ML VIAL SQ SCH ×2 (06:15→21:30)
[2020-12-03 06:35] LABS: ALBUMIN 2.9 g/dL (3.5-5.0); BILIRUBIN,TOTAL 0.1 mg/dL (0.2-1.0); CREATININE 0.8 mg/dL (0.5-1.5); TOTAL PROTEIN, SERUM 6.3 g/dL (6.0-8.3)
[2020-12-03] MEDS ORDERED: INSULIN GLARGINE 100 UNITS/ML 10 ML VIAL SQ SCH ×2 (07:00→09:45)
[2020-12-03] MEDS ORDERED: 0.9% NACL 500ML IV.SOLN 500 ML IV SCH (08:00)
[2020-12-03 08:06] VITALS: BP 126/61
[2020-12-03 08:26] LABS: HEMATOCRIT 30.4 % (42-54); MEAN CORPUSCULAR HEMOGLOBIN 26.2 pg (27.0-33.0); MEAN CORPUSCULAR HGB CONC 29.9 g/dL (32.0-36.0); MEAN CORPUSCULAR VOLUME 87.6 fL (79-99); RED BLOOD CELL COUNT(AUTO) 3.47 MIL/uL (4.50-6.20); RED CELL DISTRIBUTION WIDTH 13.3 % (11.0-15.5); WHITE BLOOD COUNT (AUTO) 5.4 K/uL (4.8-10.8)
[2020-12-03 08:37] LABS: INR 1.03 (0.85-1.15); PROTHROMBIN TIME 11.2 SEC (9.6-11.6)
[2020-12-03 08:39] LABS: PARTIAL THROMBOPLASTIN TIME 27.3 SEC (26.3-35.5)
[2020-12-03 08:45] LABS: CREATININE 0.9 mg/dL (0.5-1.5); POTASSIUM 3.8 mmol/L (3.5-5.1)
[2020-12-03] MEDS: VANCOMYCIN 1G/250ML KIT 250 ML IV SCH ×3 (09:49→21:31)
[2020-12-03] MEDS: METOPROLOL SUCCINATE 50 MG TAB.SR.24H PO SCH ×2 (09:49→21:29)
[2020-12-03] MEDS: FAMOTIDINE 20MG TAB PO SCH ×2 (09:49→21:29)
[2020-12-03] MEDS: ENOXAPARIN SODIUM 60 MG/0.6 ML SQ SCH ×2 (09:50→21:30)
[2020-12-03] MEDS: IRON POLYSACCHARIDES COMPLEX 150 MG CAPSULE PO SCH ×2 (10:02→21:29)
[2020-12-03 11:20] VITALS: BP 123/52
[2020-12-03 16:20] VITALS: BP 101/64
[2020-12-03 20:29] VITALS: BP 131/49
[2020-12-03 23:37] VITALS: BP 127/57
[2020-12-04] VITALS (8 sets, daily range): BP systolic 122–162; BP diastolic 49–92
[2020-12-04] MEDS: CEFAZOLIN SODIUM 1 GM VIAL IVP SCH ×3 (00:32→16:56)
[2020-12-04 05:23] LABS: BASOPHILS % (AUTO) 0.6 % (0.0-5.0); EOSINOPHILS % (AUTO) 1.3 % (0.0-8.0); HEMATOCRIT 27.2 % (42-54); LYMPHOCYTES % (AUTO) 31.1 % (21.0-51.0); MEAN CORPUSCULAR HEMOGLOBIN 25.9 pg (27.0-33.0); MEAN CORPUSCULAR HGB CONC 29.4 g/dL (32.0-36.0); MONOCYTES % (AUTO) 12.6 % (3.0-13.0); NEUTROPHILS % (AUTO) 54.1 % (40.0-77.0); PLATELET COUNT (AUTO) 345 K/uL (130-400); RED BLOOD CELL COUNT(AUTO) 3.09 MIL/uL (4.50-6.20); RED CELL DISTRIBUTION WIDTH 13.2 % (11.0-15.5); WHITE BLOOD COUNT (AUTO) 6.7 K/uL (4.8-10.8)
[2020-12-04 05:34] LABS: ALBUMIN 2.9 g/dL (3.5-5.0); BILIRUBIN,TOTAL 0.1 mg/dL (0.2-1.0); CREATININE 0.7 mg/dL (0.5-1.5); POTASSIUM 3.9 mmol/L (3.5-5.1); TOTAL PROTEIN, SERUM 6.1 g/dL (6.0-8.3)
[2020-12-04] MEDS: INSULIN HUMULIN R 100 UNIT/ML 3ML SQ SCH ×7 (05:44→20:29)
[2020-12-04] MEDS: VANCOMYCIN 1G/250ML KIT 250 ML IV SCH (06:19)
[2020-12-04] MEDS ORDERED: NITROGLYCERIN 2 MG VIAL IV ONE (07:35)
[2020-12-04] MEDS ORDERED: IODIXANOL 320 MG/ML 100 ML VIAL ONE ×2 (07:35→11:14)
[2020-12-04] MEDS ORDERED: HEPARIN 10,000 UNIT/10ML (1,000 UNIT/ML) VIAL ONE (07:35)
[2020-12-04] MEDS ORDERED: LIDOCAINE HCL 400MG/20ML VIAL ONE ×2 (07:36→11:15)
[2020-12-04] MEDS ORDERED: FENTANYL CITRATE PF 50 MCG/1 ML 2ML VIAL ONE ×2 (07:36→11:15)
[2020-12-04] MEDS ORDERED: MIDAZOLAM HCL 1 MG/ML 2ML VIAL ONE ×2 (07:36→11:15)
[2020-12-04] MEDS ORDERED: 0.9%NACL 1000ML 1,000 ML IV SCH (08:45)
[2020-12-04] MEDS: METOPROLOL SUCCINATE 50 MG TAB.SR.24H PO SCH ×2 (09:00→20:20)
[2020-12-04] MEDS: IRON POLYSACCHARIDES COMPLEX 150 MG CAPSULE PO SCH ×2 (09:00→20:20)
[2020-12-04] MEDS: ENOXAPARIN SODIUM 60 MG/0.6 ML SQ SCH ×2 (09:00→20:19)
[2020-12-04] MEDS: FAMOTIDINE 20MG TAB PO SCH ×2 (09:00→20:20)
[2020-12-04] MEDS ORDERED: SODIUM BICARB 50MEQ 50ML VIAL 0 ML ONE (11:14)
[2020-12-04] MEDS ORDERED: COMPOUND IV REFRIGERATED 1 EACH IVSOLN MISC PRN (16:45)
[2020-12-04] MEDS: INSULIN GLARGINE 100 UNITS/ML 10 ML VIAL SQ SCH (20:22)
[2020-12-04] MEDS: VANCOMYCIN 750MG + NS 250 ML IV SCH ×2 (20:40)
[2020-12-05] MEDS: CEFAZOLIN SODIUM 1 GM VIAL IVP SCH ×2 (00:13→08:41)
[2020-12-05 04:12] VITALS: BP 121/50
[2020-12-05 05:56] LABS: BASOPHILS % (AUTO) 0.6 % (0.0-5.0); EOSINOPHILS % (AUTO) 1.2 % (0.0-8.0); HEMATOCRIT 29.5 % (42-54); LYMPHOCYTES % (AUTO) 26.2 % (21.0-51.0); MEAN CORPUSCULAR HEMOGLOBIN 26.1 pg (27.0-33.0); MEAN CORPUSCULAR HGB CONC 29.5 g/dL (32.0-36.0); MEAN CORPUSCULAR VOLUME 88.6 fL (79-99); MONOCYTES % (AUTO) 11.5 % (3.0-13.0); NEUTROPHILS % (AUTO) 60.1 % (40.0-77.0); PLATELET COUNT (AUTO) 351 K/uL (130-400); RED BLOOD CELL COUNT(AUTO) 3.33 MIL/uL (4.50-6.20); RED CELL DISTRIBUTION WIDTH 13.5 % (11.0-15.5); WHITE BLOOD COUNT (AUTO) 6.9 K/uL (4.8-10.8)
[2020-12-05] MEDS: VANCOMYCIN 750MG + NS 250 ML IV SCH ×2 (06:05)
[2020-12-05] MEDS: INSULIN HUMULIN R 100 UNIT/ML 3ML SQ SCH ×5 (06:06→12:55)
[2020-12-05 06:10] LABS: CREATININE 0.8 mg/dL (0.5-1.5); POTASSIUM 4.4 mmol/L (3.5-5.1)
[2020-12-05 07:30] VITALS: BP 127/47
[2020-12-05 08:45] VITALS: BP 122/64
[2020-12-05] MEDS: FAMOTIDINE 20MG TAB PO SCH (08:45)
[2020-12-05] MEDS: METOPROLOL SUCCINATE 50 MG TAB.SR.24H PO SCH (08:46)
[2020-12-05] MEDS: IRON POLYSACCHARIDES COMPLEX 150 MG CAPSULE PO SCH (08:46)
[2020-12-05] MEDS: ENOXAPARIN SODIUM 60 MG/0.6 ML SQ SCH (08:46)
[2020-12-05] MEDS ORDERED: METO50TA9 PO (09:08)
[2020-12-05 11:00] VITALS: BP 133/46
[2020-12-05] MEDS ORDERED: METF-444 PO (14:19)
[2020-12-05] MEDS ORDERED: GLIM4TAB36 PO (14:19)
[2020-12-05] MEDS ORDERED: PIOG45TA4 PO (14:19)
== END 2020-12-05 15:15 | disposition home or self-care (01) | DRG 300 ==
LOC: EDH 12:57 → EDHIP 16:18 → 3BH 12-02 00:26
PROVIDERS: ADMIT Family Medicine; ATTEND Family Medicine
PROC: B4101ZZ Fluoroscopy of Abdominal Aorta using Low Osmolar Contrast (ICD-10-PCS; principal; 2020-12-04)
PROC: B41F1ZZ Fluoroscopy of Right Lower Extremity Arteries using Low Osmolar Contrast (ICD-10-PCS; 2020-12-04)
DX: E11.51 Type 2 diabetes mellitus with diabetic peripheral angiopathy without gangrene (principal); L03.115 Cellulitis of right lower limb; E87.1 Hypo-osmolality and hyponatremia; I25.3 Aneurysm of heart; I70.201 Unspecified atherosclerosis of native arteries of extremities, right leg; E11.65 Type 2 diabetes mellitus with hyperglycemia; E87.8 Other disorders of electrolyte and fluid balance, not elsewhere classified; D63.8 Anemia in other chronic diseases classified elsewhere; E11.319 Type 2 diabetes mellitus with unspecified diabetic retinopathy without macular edema; E78.5 Hyperlipidemia, unspecified; I11.0 Hypertensive heart disease with heart failure; I25.119 Atherosclerotic heart disease of native coronary artery with unspecified angina pectoris; I08.1 Rheumatic disorders of both mitral and tricuspid valves; I50.9 Heart failure, unspecified; I99.8 Other disorder of circulatory system; Z20.822 Contact with and (suspected) exposure to COVID-19; R53.81 Other malaise; E11.42 Type 2 diabetes mellitus with diabetic polyneuropathy; Z83.3 Family history of diabetes mellitus; Z89.612 Acquired absence of left leg above knee; Z89.512 Acquired absence of left leg below knee; Z95.1 Presence of aortocoronary bypass graft; Z99.3 Dependence on wheelchair
CPT/HCPCS: 36247; 36415; 36600; 73718; 75630; 75774; 80048; 80053; 80202; 81001; 82550; 82803; 82948; 83036; 83880; 84484; 85025; 85027; 85347; 85610; 85730; 87040; 87426; 93005; 93306; 93356; 93926; 93971; 99156; 99157; 99291; C1769; C1893; C1894; G0378; J0690; J1644; J1650; J1815; J2250; J3010; J3370; J3490; J7030; J7050; Q9967; U0003

== ENCOUNTER 2021-02-03 23:26 | Emergency (ER) | payer MEDICARE ==
[~2021-02-03 23:26] MED LIST changes: -AEC81 PO; -AMIO200T44 PO; -ATOR40TA71 PO; -CLOP75TA32 PO; -FERR324T4 PO; -FERR325T22 PO; -FURO80TA87 PO; +GLIM4TAB36 PO; -LISI10TA24 PO; +METF-444 PO; -METO50 PO; +METO50TA9 PO; +PIOG45TA4 PO; -POTA10CA44 PO; -SPIR100T5 PO; -TRAM50TA4 PO
[2021-02-03] MEDS ORDERED: DICYCLOMINE HCL 20 MG TAB ONE (23:53)
== END 2021-02-04 00:45 | disposition home or self-care (01) ==
LOC: EDH 23:26
DX: T83.098A Other mechanical complication of other urinary catheter, initial encounter (principal); Z48.01 Encounter for change or removal of surgical wound dressing; I11.0 Hypertensive heart disease with heart failure; I50.9 Heart failure, unspecified; E11.9 Type 2 diabetes mellitus without complications; E78.00 Pure hypercholesterolemia, unspecified; Z95.1 Presence of aortocoronary bypass graft; Z89.612 Acquired absence of left leg above knee

== ENCOUNTER 2021-02-09 20:09 | Emergency (ER) | payer MEDICARE ==
[2021-02-09] MEDS ORDERED: ONDANSETRON HCL 4 MG/2 ML VIAL ONE (20:28)
[2021-02-09] MEDS ORDERED: HEPARIN SODIUM 5000UNIT/ML 1ML VIAL ONE (20:29)
[2021-02-09] MEDS ORDERED: MORPHINE SULFATE 4 MG/1ML SYG ONE (20:30)
[2021-02-09 21:00] LABS: BASOPHILS % (AUTO) 0.2 % (0.0-5.0); EOSINOPHILS % (AUTO) 0.3 % (0.0-8.0); HEMATOCRIT 29.1 % (42-54); LYMPHOCYTES % (AUTO) 18.3 % (21.0-51.0); MEAN CORPUSCULAR VOLUME 81.7 fL (79-99); MONOCYTES % (AUTO) 12.8 % (3.0-13.0); NEUTROPHILS % (AUTO) 67.9 % (40.0-77.0); PLATELET COUNT (AUTO) 287 K/uL (130-400); RED BLOOD CELL COUNT(AUTO) 3.56 MIL/uL (4.50-6.20); RED CELL DISTRIBUTION WIDTH 14.9 % (11.0-15.5); WHITE BLOOD COUNT (AUTO) 9.5 K/uL (4.8-10.8)
[2021-02-09 21:13] LABS: INR 1.02 (0.85-1.15); PROTHROMBIN TIME 11.1 SEC (9.6-11.6)
[2021-02-09 21:14] LABS: PARTIAL THROMBOPLASTIN TIME 29.1 SEC (26.3-35.5)
[2021-02-09 21:23] LABS: POTASSIUM 4.7 mmol/L (3.5-5.1)
[2021-02-09 21:27] LABS: ALBUMIN 2.9 g/dL (3.5-5.0); BILIRUBIN,TOTAL 0.1 mg/dL (0.2-1.0); CRP QUANTITATIVE 82.9 mg/L (0.00-9.0); MAGNESIUM 1.4 mg/dL (1.80-2.40); TOTAL PROTEIN, SERUM 7.2 g/dL (6.0-8.3)
[2021-02-09] MEDS ORDERED: HEPARIN 25000 UNITS/250 ML D5W 250 ML IV ONE (22:25)
[2021-02-09] MEDS ORDERED: INSULIN HUMULIN R 100 UNIT/ML 3ML ONE (23:23)
== END 2021-02-10 02:19 | disposition short-term general hospital (02) ==
LOC: EDH 20:09
DX: I99.8 Other disorder of circulatory system (principal); I70.92 Chronic total occlusion of artery of the extremities; E11.65 Type 2 diabetes mellitus with hyperglycemia; Z89.421 Acquired absence of other right toe(s); Z20.822 Contact with and (suspected) exposure to COVID-19; I50.9 Heart failure, unspecified; I10 Essential (primary) hypertension
CPT/HCPCS: 36415; 71045; 73630; 80053; 83605; 83735; 85025; 85378; 85610; 85730; 86140; 86850; 86900; 86901; 87426; 93005; 93926; 96374; 96375; 96376; 99291; J1644 ×2; J1815; J2270; J2405; U0003